=== PATIENT | male | born 1960 | race Caucasian/White ===

== ENCOUNTER 2022-07-13 23:35 | Emergency (ER) | payer OTHER, SELFPAY ==
--- NOTE | 2022-07-13 23:42 | CRLHL7_ITS ---
For Patients: As a result of the Cures Act, medical imaging exams and procedure reports are released immediately into your electronic medical record. You may view this report before your referring provider. If you have questions, please contact your health care provider. INDICATION: Palpitations. TECHNIQUE: Chest 1 view(s) COMPARISON: Chest radiographs dated 09/21/2019. FINDINGS: Cardiomediastinal silhouette and pulmonary vasculature are normal. No focal consolidation. No significant pleural effusion, no definite pneumothorax. No acute chest wall abnormality. ACDF hardware is noted. IMPRESSION: No acute cardiopulmonary process. Dictated by Nj Cheng MD @ 07/14/2022 12:44:41 AM (Electronically Signed)
[2022-07-13 23:53] VITALS: BP 108/85; PULSE 130; TEMP 36.4; O2SAT 96; BMI 39.1
[2022-07-13 23:56] LABS: Basophils Absolute Auto 0.02 K/uL (0.00-0.30); Basophils Percent Auto 0.2 % (0.0-3.0); Eosinophils Absolute Auto 0.19 K/uL (0.00-0.50); Eosinophils Percent Auto 2.1 % (0.0-7.0); Hemoglobin* 13.5 gm/dL (13.5-17.5); Immature Granulocytes Abs Auto 0.01 K/uL (0.00-0.30); Lymphocytes Absolute Auto 3.71 K/uL (0.90-2.90); Lymphocytes Percent Auto 40.1 % (20-44); Mean Corpuscular HGB Conc 35 gm/dL (32-36); Mean Corpuscular Hemoglobin 29 pg (26-34); Mean Corpuscular Volume 82 fL (80-100); Monocytes Percent Auto 8.1 % (0.0-11.0); Neutrophils Absolute Auto 4.57 K/uL (1.7-7.0); Neutrophils Percent Auto 49.4 % (42.0-72.0); Platelet Count* 260 K/uL (140-440); RDW Coefficient of Variation % 12.4 % (11.5-15.5); Red Blood Count 4.74 m/uL (4.30-5.90); White Blood Count* 9.25 K/uL (4.50-11.00)
[2022-07-14 00:02] LABS: Slide Review Reflex No
[2022-07-14 00:11] LABS: Chloride* 101 mmol/L (96-114); Sodium* 136 mmol/L (135-149)
[2022-07-14 00:14] LABS: Carbon Dioxide* 28 mmol/L (20-32); Creatinine* 1.2 mg/dL (0.5-1.5); Est. Creatinine Clearance* 66.24; Estimated Glomerular Filt Rate 68 ml/min
[2022-07-14 00:15] LABS: Blood Urea Nitrogen* 20 mg/dL (7-30); Calcium* 9.1 mg/dL (8.4-10.6); Glucose* 229 mg/dL (60-115); Magnesium* 1.9 mg/dL (1.5-2.6)
[2022-07-14 00:16] LABS: Potassium* 2.9 mmol/L (3.6-5.1)
[2022-07-14 00:24] LABS: NT Pro B Type NatriureticPept* 184 PG/mL (0-125)
--- NOTE | 2022-07-14 00:28 | ED_ITS ---
HPI - General Adult General Date Seen: 07/14/22 Chief complaint: Chest Pain Stated complaint: heart arythmia Time Seen by Provider: 07/14/22 00:17 Source: patient Mode of arrival: ambulatory Limitations: no limitations History of Present Illness HPI narrative: Patient is a 62-year-old male with a history of paroxysmal atrial fibrillation who began feeling palpitations and tachycardia around 10:00 p.m.. He felt well throughout the day today. His last episode of atrial fibrillation was about one year ago and did require cardioversion for the 1st time. He is not on anything for rate control and he is not anticoagulated beyond a baby aspirin daily. Believes that he had an echo but it has been quite sometime ago. He denies any chest pains or shortness of breath. He has history of hypokalemia but is not currently on a potassium supplement. PCP is Dr. Herron. Related Data Home Medications Medication Instructions Recorded Confirmed aspirin 81 mg capsule 81 mg PO DAILY 07/13/22 07/13/22 Previous Rx's Medication Instructions Recorded hydrochlorothiazide 25 mg tablet 25 mg PO QDAY #30 tabs 07/07/22 losartan 100 mg tablet 100 mg PO QDAY #30 tabs 07/07/22 potassium chloride 20 mEq 20 meq PO DAILY #20 tabs 07/14/22 tablet,extended release Allergies Allergy/AdvReac Type Severity Reaction Status Date / Time No Known Drug Allergies Allergy Verified 07/13/22 23:55 [facility] Medical History (Updated 07/14/22 @ 02:52 by Jj Quan MD) HTN (hypertension) Paroxysmal atrial fibrillation Social History (Updated 07/14/22 @ 00:32 by Jj Quan MD) Narrative: Works in [employer] for [employer], nonsmoker, PCP Gopal Smoking Status: Never smoker Do you use any of these nicotine containing products: None Second hand tobacco smoke exposure: No How often do you have a drink containing alcohol: never How often do you have six or more drinks on one occasion: Never AUDIT-C Alcohol total score: 0 Non-prescribed substance use: denies use Exam Narrative: Exam Narrative: Vitals noted. HEENT: Conjunctiva clear. Neck is supple without adenopathy, thyromegaly, carotid bruit. Lungs: Clear to auscultation in all avery. No wheezes, rales, rhonchi. Heart: Irregularly irregular and tachycardic. No murmur.. Abdomen: Obese, Soft and nontender. No guarding, rigidity, rebound. Bowel sounds are normal. No palpable masses. Extremities: No cyanosis or edema. Good distal pulses. Skin: No abnormalities noted of the exposed skin. Neurologic: Awake, alert, fully oriented. Neurologic exam is nonfocal. Const: Vital Signs, click to edit/add: Vital Signs - 24 hr 07/13/22 23:53 07/14/22 01:03 07/14/22 00:52 Temperature 97.5 F L Pulse Rate [Right Pulse Oximeter] 130 H 92 Respiratory Rate 18 18 Blood Pressure [Le ft Upper Arm] 108/85 110/70 112/80 Pulse Oximetry 96 95 Oxygen Delivery Me thod Room Air Room Air Room Air 07/14/22 00:52 07/14/22 02:49 Temperature Pulse Rate [Right Pulse Oximeter] Respiratory Rate 18 20 Blood Pressure [Le ft Upper Arm] 120/78 113/70 Pulse Oximetry 97 95 Oxygen Delivery Me thod Room Air Room Air Documenting provider has reviewed patient's vital signs: yes Course Course Hospital Course: Patient seen and examined and found to be in atrial fibrillation with a rate in the 130-140 range. Labs and chest x-ray are ordered. He is having no chest pains or shortness of breath. He believes that this started at approximately 10:00 p.m.. Reevaluation(s) Reevaluation #1: Chest x-ray is normal. Labs are all normal other than a potassium of 2.9. He is given 40 mil equivalents orally and 20 mEq IV. He is given diltiazem 10 mg IV bolus. Reevaluation #2: Heart rate is down into the 80-90 range but still in atrial fibrillation. He is asymptomatic. Second bolus of diltiazem 10 mg IV is given. Reevaluation #3: Patient continues to have some discomfort in his chest we discussed options of discharge on anticoagulation and rate control versus cardioversion. He elected for cardioversion. Informed consent is obtained. He is cardioverted with 100 joules x1 with preprocedure sedation Versed 2 mg and fentanyl 100 mcg. This was successful and his postprocedural EKG showed an sinus bradycardia with a rate of 54. No complications. Vital Signs Vital signs: Initial Vital Signs Temperature 97.5 F L 07/13/22 23:53 Temperature Source Temporal Artery Scan 07/13/22 23:53 Pulse Rate 130 H 07/13/22 23:53 Blood Pressure 108/85 07/13/22 23:53 Blood Pressure Mean 92 07/13/22 23:53 Blood Pressure Position Supine 07/13/22 23:53 Pulse Oximetry 96 07/13/22 23:53 Oxygen Delivery Method 07/13/22 23:53 Vital Signs Temperature 97.5 F L 07/13/22 23:53 Pulse Rate 130 H 07/13/22 23:53 Blood Pressure 108/85 07/13/22 23:53 Pulse Oximetry 96 07/13/22 23:53 Oxygen Delivery Method 07/13/22 23:53 Temperature 97.5 F L 07/13/22 23:53 Pulse Rate 92 07/14/22 00:52 Respiratory Rate 20 07/14/22 02:49 Blood Pressure 113/70 07/14/22 02:49 Pulse Oximetry 95 07/14/22 02:49 Oxygen Delivery Method 07/14/22 02:49 Medical Decision Making Lab Data Labs: Lab Results 07/13/22 07/13/22 07/13/22 Range/Units 23:43 23:45 23:45 WBC 9.25 (4.50-11.00) K/uL RBC 4.74 (4.30-5.90) m/uL Hgb 13.5 (13.5-17.5) gm/dL Hct 39.0 (37.0-53.0) % MCV 82 (80-100) fL MCH 29 (26-34) pg MCHC 35 (32-36) gm/dL RDW Coeff of Yaakov 12.4 (11.5-15.5) % Plt Count 260 (140-440) K/uL Neut % (Auto) 49.4 (42.0-72.0) % Lymph % (Auto) 40.1 (20-44) % Mclennan % (Auto) 8.1 (0.0-11.0) % Eos % (Auto) 2.1 (0.0-7.0) % Baso % (Auto) 0.2 (0.0-3.0) % Neut # (Auto) 4.57 (1.7-7.0) K/uL Lymph # (Auto) 3.71 H (0.90-2.90) K/uL Mclennan # (Auto) 0.70 (0.00-0.90) K/UL Eos # (Auto) 0.19 (0.00-0.50) K/uL Baso # (Auto) 0.02 (0.00-0.30) K/uL Abs Immat Gran (auto) 0.01 (0.00-0.30) K/uL Sodium 136 (135-149) mmol/L Potassium 2.9 L* (3.6-5.1) mmol/L Chloride 101 (96-114) mmol/L Carbon Dioxide 28 (20-32) mmol/L BUN 20 (7-30) mg/dL Creatinine 1.2 (0.5-1.5) mg/dL Estimated Creat Clear 66.24 Estimated GFR 68 ml/min Glucose 229 H (60-115) mg/dL Calcium 9.1 (8.4-10.6) mg/dL Magnesium 1.9 (1.5-2.6) mg/dL NT-Pro-B Natriuret Pep (0-125) PG/mL POC Troponin I 0.00 L (0.01-0.04) ng/ml 07/13/22 Range/Units 23:45 WBC (4.50-11.00) K/uL RBC (4.30-5.90) m/uL Hgb (13.5-17.5) gm/dL Hct (37.0-53.0) % MCV (80-100) fL MCH (26-34) pg MCHC (32-36) gm/dL RDW Coeff of Yaakov (11.5-15.5) % Plt Count (140-440) K/uL Neut % (Auto) (42.0-72.0) % Lymph % (Auto) (20-44) % Mclennan % (Auto) (0.0-11.0) % Eos % (Auto) (0.0-7.0) % Baso % (Auto) (0.0-3.0) % Neut # (Auto) (1.7-7.0) K/uL Lymph # (Auto) (0.90-2.90) K/uL Mclennan # (Auto) (0.00-0.90) K/UL Eos # (Auto) (0.00-0.50) K/uL Baso # (Auto) (0.00-0.30) K/uL Abs Immat Gran (auto) (0.00-0.30) K/uL Sodium (135-149) mmol/L Potassium (3.6-5.1) mmol/L Chloride (96-114) mmol/L Carbon Dioxide (20-32) mmol/L BUN (7-30) mg/dL Creatinine (0.5-1.5) mg/dL Estimated Creat Clear Estimated GFR ml/min Glucose (60-115) mg/dL Calcium (8.4-10.6) mg/dL Magnesium (1.5-2.6) mg/dL NT-Pro-B Natriuret Pep 184 H (0-125) PG/mL POC Troponin I (0.01-0.04) ng/ml Discharge Plan Discharge Clinical Impression: Paroxysmal atrial fibrillation Patient Disposition: Home, Self-Care Condition: Improved Additional Instructions: Continue current medications. Follow-up with Dr. Herron to discuss cardiology consult, echo, anticoagulation. Start taking KCl 20 mil equivalents daily. Return emergency department for recurrent atrial fibrillation. Prescriptions: New potassium chloride 20 mEq tablet extended release 20 meq PO DAILY Qty: 20 2RF No Action aspirin 81 mg capsule 81 mg PO DAILY hydrochlorothiazide 25 mg tablet 25 mg PO QDAY Qty: 30 0RF losartan 100 mg tablet 100 mg PO QDAY Qty: 30 0RF Stand Alone Forms: [employer] Info Instructions Procedures Procedural Sedation Pre procedure diagnosis: Atrial fibrillation Post procedure diagnosis: Return normal sinus rhythm Written consent by: patient Verification/time out: correct patient Name of person perfmorming the procedure: Jj Quan Sedation provider same as procedural provider: Yes ASA Class: II Time of Last PO Intake: 19:00 Preparation: bread and pastry baker applied, pulse oximeter, supplemental O2 applied, suction/airway equipment at bedside and IV secured Fentanyl: IV Fentanyl dose (mcg): 99 Midazolam: IV Midazolam dose (mg): 2 Patient Tolerated Procedure: well Complications: none Additional Procedures Procedure name: Cardioversion Pre procedure diagnosis: Atrial fibrillation Post procedure diagnosis: Return to sinus rhythm Written consent by: patient Verification/time out: correct patient Estimated blood loss (if any): none
[2022-07-14 00:52] VITALS: BP 112/80; BP 120/78; PULSE 92; RESP 18; O2SAT 97
--- NOTE | 2022-07-14 00:59 | PC.NURSE ---
all cares explained to pt including potassium levels and cardiac meds we are giving. Pt pleasant and cooperative.
[2022-07-14 01:03] VITALS: BP 110/70; RESP 18; O2SAT 95
[2022-07-14] MEDS: dilTIAZem 5 MG/ML inj 10 MG IVP ×2 (01:48→02:00)
[2022-07-14] MEDS: POTASSIUM CHLORIDE 10 MEQ/100 ML PIGGYBACK 100 MEQ IVPB (01:57)
[2022-07-14] MEDS: POTASSIUM CHLORIDE 10 MEQ CAPSULE ER 40 MEQ PO (02:00)
--- NOTE | 2022-07-14 02:44 | ED.NURSE ---
pt consented, moved to room 8 with airway cart at BS. versed 2mg and fentanyl 100mcg IV given. Post EKG SB and MD aware.
[2022-07-14 02:49] VITALS: BP 113/70; RESP 20; O2SAT 95
[2022-07-14] MEDS: MIDAZOLAM HCL 1 MG/ML inj 2 MG IVP (02:53)
[2022-07-14] MEDS: fentaNYL 100 MCG/2 ML inj 50 MCG IVP (02:53)
--- NOTE | 2022-07-14 03:11 | ED.NURSE ---
written and verbal D/C per MD and RN. IV D/C intact. All stickers removed. Family member here to drive pt home. Pt able to ambulate out with stable gait.
== END 2022-07-14 04:32 | disposition home or self-care (01) ==
PROVIDERS: Family Medicine; Emergency Provider Family Medicine
DX: I48.0 Paroxysmal atrial fibrillation (principal)
CPT/HCPCS: 36415; 71045; 80048; 83735; 83880; 84484; 85025; 92960; 93005; 96361; 96374; 96375; 96376; 99284; A9270; J2250; J3010; J3480

== ENCOUNTER 2022-10-25 21:25 | Emergency (ER) | payer OTHER, SELFPAY ==
[2022-10-25] VITALS (21 sets, daily range): BP systolic 108–165; BP diastolic 64–102; PULSE 51–116; RESP 12–19; TEMP 36.7; O2SAT 96–99
--- NOTE | 2022-10-25 21:28 | ED.GENADULT ---
HPI - General Adult General Time Seen by Provider: 21:28 Date Seen: 10/25/22 Chief complaint: Arrhythmia/Palpitations Stated complaint: Afib Time Seen by Provider: 10/25/22 21:27 Source: patient Mode of arrival: ambulatory Limitations: no limitations History of Present Illness HPI narrative: 62-year-old male who comes in today with irregular heart rate. Review of chart shows patient has a history of atrial fibrillation, was seen in June and had electrical cardioversion at that time. He reports that he started having palpitations with little bit of chest tightness about 2 hours prior to coming emergency department. He denies shortness of breath. Has not taken any medication for this. He takes losartan and amlodipine regularly for blood pressure, not currently anticoagulated. He does not feel that he has been in atrial fibrillation since the last time he was cardioverted. Related Data Home Medications Medication Instructions Recorded Confirmed aspirin 81 mg capsule 81 mg PO DAILY 07/13/22 10/25/22 amlodipine 5 mg tablet mg 10/25/22 metformin 500 mg tablet mg 10/25/22 Previous Rx's Medication Instructions Recorded hydrochlorothiazide 25 mg tablet 25 mg PO QDAY #30 tabs 07/07/22 losartan 100 mg tablet 100 mg PO QDAY #30 tabs 07/07/22 potassium chloride 20 mEq 20 meq PO DAILY #20 tabs 07/14/22 tablet,extended release potassium chloride 20 mEq 20 meq PO BID #60 tabs 10/25/22 tablet,extended release Allergies Allergy/AdvReac Type Severity Reaction Status Date / Time No Known Drug Allergies Allergy Verified 07/13/22 23:55 [facility] Medical History (Updated 10/25/22 @ 22:43 by Venu Rashid MD) HTN (hypertension) Paroxysmal atrial fibrillation Social History (Updated 07/14/22 @ 00:32 by Jj Quan MD) 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[employer], 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, 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 Smoking Status: Never smoker Do you use any of these nicotine containing products: None Second hand tobacco smoke exposure: No How often do you have a drink containing alcohol: never How often do you have six or more drinks on one occasion: Never AUDIT-C Alcohol total score: 0 Non-prescribed substance use: denies use service: No Exam Narrative: Exam Narrative: General: Well-developed and well-nourished, no acute distress Head: Atraumatic and normocephalic Eyes: Pupils are equal reactive, extraocular motions intact, conjunctiva clear ENT: External nose and ears are normal, posterior pharynx without erythema or exudate Neck: No midline cervical tenderness, full spontaneous range of motion the neck, trachea midline, no adenopathy Heart: Tachycardic and regular, no murmur thrill Lungs: Clear to auscultation bilaterally without wheezes or crackles Abdomen: Soft, nontender, nondistended with active bowel sounds Musculoskeletal: No tenderness, deformity, or edema Neurologic: Awake, alert, and oriented x3, no gross focal neurologic deficits, cranial nerves intact as tested Psych: Mood and affect are appropriate Skin: No rashes Const: Vital Signs, click to edit/add: Vital Signs - 24 hr 10/25/22 21:33 10/25/22 21:43 10/25/22 21:45 Temperature 98.1 F Pulse Rate 81 104 H Pulse Rate [Left P ulse Oximeter] 101 H Respiratory Rate 16 Blood Pressure Blood Pressure [Ri ght Upper Arm] 165/102 H Pulse Oximetry 98 97 96 Oxygen Delivery Me thod Room Air Oxygen Flow Rate 10/25/22 21:46 10/25/22 22:14 10/25/22 21:47 Temperature Pulse Rate 91 116 H Pulse Rate [Left P ulse Oximeter] Respiratory Rate Blood Pressure 117/77 Blood Pressure [Ri ght Upper Arm] Pulse Oximetry 96 98 97 Oxygen Delivery Me thod Nasal Cannula Oxygen Flow Rate 2 10/25/22 22:00 10/25/22 22:02 10/25/22 22:15 Temperature Pulse Rate 103 H 100 78 Pulse Rate [Left P ulse Oximeter] Respiratory Rate 17 Blood Pressure 136/83 Blood Pressure [Ri t Upper Arm] Pulse Oximetry 97 96 98 Oxygen Delivery Me thod Oxygen Flow Rate 10/25/22 22:16 10/25/22 22:30 10/25/22 22:31 Temperature Pulse Rate 80 88 71 Pulse Rate [Left P ulse Oximeter] Respiratory Rate 19 19 19 Blood Pressure 108/72 111/67 Blood Pressure [Ri ght Upper Arm] Pulse Oximetry 98 98 98 Oxygen Delivery Me thod Oxygen Flow Rate 10/25/22 22:35 Temperature Pulse Rate 80 Pulse Rate [Left P ulse Oximeter] Respiratory Rate 16 Blood Pressure 108/73 Blood Pressure [Ri ght Upper Arm] Pulse Oximetry 98 Oxygen Delivery Me thod Oxygen Flow Rate Course Course Hospital Course: Patient seen examined, prior records reviewed. Patient with history of atrial fibrillation, feels like he is in atrial fibrillation again. We discussed treatment for this including medications and cardioversion. With his bifascicular block, he may not be a candidate for rate control medications, will discuss with Cardiology. He would like to proceed with cardioversion. I am little apprehensive about this given history of paroxysmal atrial fibrillation at risk for embolic event or stroke with cardioversion in patient who is not anticoagulated. We discussed this risk and patient would like to proceed with cardioversion. Will discuss ongoing rate control patient. Cardizem IV is ordered. Reevaluation(s) Reevaluation #1: Labs interpreted by me demonstrate mild hyperkalemia, this will be replaced orally after patient's cardioverted. Otherwise reassuring and no evidence for heart failure. Diltiazem 10 mg IV was given with improvement of heart rate to the 70s and 80s. Discussed discharge with rate control the patient but he still would like cardioversion. Time: 22:26 Reevaluation #2: Electrical cardioversion for atrial fibrillation. Risks benefits discussed with patient, verbal consent was obtained. Anesthesia at bedside, advanced airway supplies immediately available. Patient on shelter monitor, pulse oximetry, and end-tidal CO2 monitoring. Pads were placed anterior posterior. Synchronized shock of 100 joules delivered with successful conversion to sinus rate 58-60. Patient recovered. No airway intervention is needed. See anesthesia note for complete sedation details. Time: 22:39 Vital Signs Vital signs: Initial Vital Signs Temperature 98.1 F 10/25/22 21:33 Temperature Source Temporal Artery Scan 10/25/22 21:33 Pulse Rate 101 H 10/25/22 21:33 Respiratory Rate 16 10/25/22 21:33 Blood Pressure 165/102 H 10/25/22 21:33 Blood Pressure Mean 123 10/25/22 21:33 Blood Pressure Position Sitting 10/25/22 21:33 Pulse Oximetry 98 10/25/22 21:33 Oxygen Delivery Method 10/25/22 21:33 Vital Signs Temperature 98.1 F 10/25/22 21:33 Pulse Rate 101 H 10/25/22 21:33 Respiratory Rate 16 10/25/22 21:33 Blood Pressure 165/102 H 10/25/22 21:33 Pulse Oximetry 98 10/25/22 21:33 Oxygen Delivery Method 10/25/22 21:33 Temperature 98.1 F 10/25/22 21:33 Pulse Rate 80 10/25/22 22:35 Respiratory Rate 16 10/25/22 22:35 Blood Pressure 108/73 10/25/22 22:35 Pulse Oximetry 98 10/25/22 22:35 Oxygen Delivery Method 10/25/22 22:14 Oxygen Flow Rate 2 10/25/22 22:14 Medical Decision Making Lab Data Labs: Lab Results 10/25/22 10/25/22 Range/Units 21:35 21:35 Sodium 140 (135-149) mmol/L Potassium 3.1 L (3.6-5.1) mmol/L Chloride 109 (96-114) mmol/L Carbon Dioxide 26 (20-32) mmol/L BUN 16 (7-30) mg/dL Creatinine 0.9 (0.5-1.5) mg/dL Estimated GFR 95 ml/min Glucose 226 H (60-115) mg/dL Calcium 8.7 (8.4-10.6) mg/dL Magnesium 1.7 (1.5-2.6) mg/dL NT-Pro-B Natriuret Pep 250 pg/mL POC Troponin I 0.01 (0.01-0.04) ng/ml Imaging Data Chest x-ray: Attestation: I have reviewed the pertinent imaging results. My impression: Cardiomegaly, otherwise negative Radiologist's impression: IMPRESSION: 1. [id number] cardiomegaly is noted without interval change. ECG Data Attestation: I personally reviewed and interpreted this ECG as follows: Prior ECG tracings: available for review Interpretation: Independent interpretation by me demonstrates atrial fibrillation with RVR rate 117, bifascicular block, no acute ST elevations or depressions, normal axis, QTC 460. Compared to prior of June 2022, no acute changes are seen. Repeat EKG after cardiversion demonstrates sinus rhythm rate 56, bifascicular block, no acute ST elevations or depressions, normal axis, MD 160. Compared to prior of earlier today, sinus rhythm has replaced atrial fibrillation Discharge Plan Discharge Clinical Impression: Paroxysmal atrial fibrillation, Acute hypokalemia Patient Disposition: Home, Self-Care Condition: Improved Instructions: A-fib (Atrial Fibrillation) (ED), Hypokalemia (ED), Cardioversion (DC) Additional Instructions: Take potassium as instructed. Do not drive for 12 hours after procedure. Follow-up with your doctor for further evaluation treatment. Activity Level: No Restrictions Discharge Diet: Heart Healthy (2 gm sodium, low fat) Prescriptions: New potassium chloride 20 mEq tablet extended release 20 meq PO BID Qty: 60 2RF No Action aspirin 81 mg capsule 81 mg PO DAILY potassium chloride 20 mEq tablet extended release 20 meq PO DAILY Qty: 20 2RF metformin 500 mg tablet Label Comments: Take 1 tablet (500 mg) by mouth 2 times daily (with meals) amlodipine 5 mg tablet Label Comments: TAKE ONE TABLET BY MOUTH ONE TIME DAILY hydrochlorothiazide 25 mg tablet 25 mg PO QDAY Qty: 30 0RF losartan 100 mg tablet 100 mg PO QDAY Qty: 30 0RF Follow Up/Referrals: Provider,Not a Local [Primary Care Provider] - Stand Alone Forms: [employer] Info Instructions
--- NOTE | 2022-10-25 21:29 | CRLHL7_ITS ---
For Patients: As a result of the Cures Act, medical imaging exams and procedure reports are released immediately into your electronic medical record. You may view this report before your referring provider. If you have questions, please contact your health care provider. INDICATION: Atrial fibrillation TECHNIQUE: Chest radiograph 1 view COMPARISON: 07/14/2022 FINDINGS: The sensitivity and specificity of the exam are moderately limited by the patient`s body habitus. Mediastinum: The mediastinum is normal in appearance. [id number] cardiomegaly is noted without interval change. Mild stable elevation of the right hemidiaphragm is noted. Lung: Both lungs are unremarkable in appearance. No sign of pleural effusion seen. No pneumothorax is identified. Bone and Soft tissue: Unremarkable for age. IMPRESSION: 1. Irhr-xb-[id number] cardiomegaly is noted without interval change. Dictated by Landry Agudelo MD @ 10/25/2022 10:08:14 PM Dictated by: Landry Agudelo MD @ 10/25/2022 22:08:18 (Electronically Signed)
[2022-10-25] MEDS: 0.9 % SODIUM CHLORIDE 1000 ml 1,000 ML IV (21:50)
[2022-10-25 21:55] LABS: Troponin, Point-of-Care* 0.01 ng/ml (0.01-0.04)
[2022-10-25] MEDS: dilTIAZem 5 MG/ML inj 10 MG IVP (22:02)
[2022-10-25 22:04] LABS: Chloride* 109 mmol/L (96-114)
[2022-10-25 22:05] LABS: Potassium* 3.1 mmol/L (3.6-5.1); Sodium* 140 mmol/L (135-149)
[2022-10-25 22:07] LABS: Creatinine* 0.9 mg/dL (0.5-1.5); Estimated Glomerular Filt Rate 95 ml/min
[2022-10-25 22:08] LABS: Blood Urea Nitrogen* 16 mg/dL (7-30); Calcium* 8.7 mg/dL (8.4-10.6); Carbon Dioxide* 26 mmol/L (20-32); Glucose* 226 mg/dL (60-115); Magnesium* 1.7 mg/dL (1.5-2.6)
[2022-10-25 22:21] LABS: NT Pro B Type NatriureticPept* 250 pg/mL
--- NOTE | 2022-10-25 22:55 | W.ANESCHARGE ---
Anesthesia Charges Start Date/Time Anesthesia Start Date: 10/25/22 Anesthesia Start Time: 22:30 Stop Date/Time Anesthesia Stop Date: 10/25/22 Anesthesia Stop Time: 22:45 Summary Emergency: Yes
[2022-10-25] MEDS: POTASSIUM CHLORIDE 10 MEQ CAPSULE ER 20 MEQ PO (23:04)
== END 2022-10-25 23:42 | disposition home or self-care (01) ==
PROVIDERS: Emergency Provider Family Medicine
DX: I48.0 Paroxysmal atrial fibrillation (principal); E87.6 Hypokalemia
CPT/HCPCS: 00410; 36415; 71045; 80048; 83735; 83880; 84484; 92960; 93005; 96361; 96374; 99140; 99284; 99291; A9270; J2250; J2704; J3010; J3490; J7030

== ENCOUNTER 2023-07-22 12:36 | Emergency (ER) | payer OTHER, SELFPAY ==
[2023-07-22 12:42] VITALS: BP 188/87; PULSE 60; RESP 16; O2SAT 98; BMI 38.7
--- NOTE | 2023-07-22 13:00 | ED_ITS ---
HPI - Wound/Laceration General Chief Complaint: Laceration/Wound Stated Complaint: Head Lac Time Seen by Provider: 07/22/23 12:37 History of Present Illness HPI narrative: This 63-year-old male comes in with a laceration to his scalp that occurred just prior to arrival. He states that he bumped into a tent and injured the top portion of his head. He states that he is unsure of his tetanus status. He did not have loss of consciousness. There was bleeding at the time but currently no active bleeding. Related Data Home Medications Medication Instructions Recorded Confirmed aspirin 81 mg capsule 81 mg PO DAILY 07/13/22 02/05/23 amlodipine 5 mg tablet mg 10/25/22 02/05/23 metformin 500 mg tablet mg 10/25/22 02/05/23 Previous Rx's Medication Instructions Recorded losartan 100 mg tablet 100 mg PO QDAY #30 tabs 07/07/22 Allergies Allergy/AdvReac Type Severity Reaction Status Date / Time No Known Drug Allergies Allergy Verified 07/13/22 23:55 Review of Systems Status of ROS: Reports: 10 or more systems reviewed and unremarkable except as noted in History and below Narrative: Constitutional: No fevers, no weight gain or loss. Eyes: No discharge. No vision changes. HENT: No congestion, no sore throat, no ear pain. Cardiovascular: No chest pain, no palpitations. Respiratory: No shortness of breath, no wheezes, no cough. Gastrointestinal: No abdominal pain, no vomiting, no diarrhea. Genitourinary: No dysuria, no hematuria. Musculoskeletal: Normal range of motion. Skin: No rashes, no pruritis. Neurological: No dizziness, weakness, sensory change, speech change. Endo/Heme/Allergies: No bruising or bleeding. No polydipsia. Pysch: no suicidality, no anxiety, no insomnia. All other systems reviewed and are negative. 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 HEENT: 1.5 cm irregular laceration on the top portion of his head. No underlying hematoma. Neck: Normal range of motion. Nontender. Supple. Heart: Intact distal pulses. Lungs: No chest discomfort. No wheezes, rhonchi, or rales. Abdomen: Nontender. Back: Normal range of motion. Extremities: Normal range of motion. No injury. Skin: Intact. No rash. Warm. No erythema or pallor. Neurologic: No altered sensation. No weakness. Alert and oriented. Psychiatric: No suicidality. No anxiety or depression. No insomnia. Nursing notes and vitals signs are reviewed. Const: Vital Signs, click to edit/add: Vital Signs - 24 hr 07/22/23 12:42 Pulse Rate [Pulse Oximeter] 60 Respiratory Rate 16 Blood Pressure [Ri ght Upper Arm] 188/87 H Pulse Oximetry 98 Oxygen Delivery Me thod Room Air Course Vital Signs Vital signs: Initial Vital Signs Pulse Rate 60 07/22/23 12:42 Pulse Rhythm Regular 07/22/23 12:42 Respiratory Rate 16 07/22/23 12:42 Blood Pressure 188/87 H 07/22/23 12:42 Blood Pressure Mean 120 H 07/22/23 12:42 Blood Pressure Position Sitting 07/22/23 12:42 Pulse Oximetry 98 07/22/23 12:42 Oxygen Delivery Method Room Air 07/22/23 12:42 Vital Signs Pulse Rate 60 07/22/23 12:42 Respiratory Rate 16 07/22/23 12:42 Blood Pressure 188/87 H 07/22/23 12:42 Pulse Oximetry 98 07/22/23 12:42 Oxygen Delivery Method Room Air 07/22/23 12:42 Pulse Rate 60 07/22/23 12:42 Respiratory Rate 16 07/22/23 12:42 Blood Pressure 188/87 H 07/22/23 12:42 Pulse Oximetry 98 07/22/23 12:42 Oxygen Delivery Method Room Air 07/22/23 12:42 MDM - Wound/Laceration MDM Narrative Medical decision making narrative: This patient comes in for evaluation and treatment of a laceration on his scalp as described above. The wound was cleansed and would benefit from Dermabond repair. Skin edges are already approximated nicely. Dermabond was applied with excellent results. Instructions were given regarding wound care. The patient did receive a tetanus vaccination. Discharge Plan Discharge Clinical Impression: Laceration Patient Disposition: Home, Self-Care Condition: Improved Additional Instructions: Keep wound clean and dry. Activity as tolerated. Use [id number] medicines as needed and directed. Follow up with MD or return if worsening. Prescriptions: No Action aspirin 81 mg capsule 81 mg PO DAILY metformin 500 mg tablet Patient Comments: Take 1 tablet (500 mg) by mouth 2 times daily (with meals) amlodipine 5 mg tablet Patient Comments: TAKE ONE TABLET BY MOUTH ONE TIME DAILY losartan 100 mg tablet 100 mg PO QDAY Qty: 30 0RF Follow Up/Referrals: Provider,Not a Local [Primary Care Provider] - Stand Alone Forms: [facility] Info Instructions
[2023-07-22] MEDS: TETANUS/DIPHTH/PERTUSSIS 0.5 ML SYRINGE IM (13:04)
== END 2023-07-22 13:10 | disposition home or self-care (01) ==
LOC: ED 13:09
PROVIDERS: Emergency Provider Emergency Medicine Emergency Medical Services
DX: S01.01XA Laceration without foreign body of scalp, initial encounter (principal); W26.9XXA Contact with unspecified sharp object(s), initial encounter
CPT/HCPCS: 12001; 90471; 90715; 99283; 99284

== ENCOUNTER 2024-12-12 07:38 | Emergency (ER) | payer MEDICARE, SELFPAY ==
[2024-12-12] VITALS (31 sets, daily range): BP systolic 68–156; BP diastolic 51–95; PULSE 50–128; RESP 6–26; TEMP 36.3; O2SAT 95–100; BMI 36.6
--- OUTSIDE RECORDS SUMMARY | 2024-12-12 07:40 | XMS_ITS | Encounter Summary ---
Author Organization [facility] Address [address] [place] [address] Care Team Providers Care Watchmaking Teacher Name Role Phone Hebert Herron MD Primary Care Provider + Hebert Herron MD Unavailable [phone] Anny Pratt [facility] Unavailable [phone] Encounter Details Date Type Department Care Team (Late st Contact Info) Description 12/20/2023 MyC Medical Advice [facility] Mental Health & Addiction [facility] [address] [place] [phone] Anny Pratt LP[facility] [address] [place] [address] Social History Tobacco Use Types Packs/Day Years Used Date Smoking Tobacco: Never Smokeless Tobacco: Never Alcohol Use Standard Drinks/Week Comments No 0 (1 standard drink = 0.6 oz pur e alcohol) PHQ-2 Answer Date Recorded PHQ-2 Score 2 12/21/2023 Adolescent Education Answer Date Record ed Getting School Help Needed Not on file 07/31 Sex and Gender Information Value Date Recorded Sex Assigned at Not on file Legal Sex Male 4:18 AM ARBORIST CLIMBER Gender Identity Not on file Sexual Orientation Not on file documented as of this encounter Plan of Treatment Not on file documented as of this encounter Visit Diagnoses Not on filedocumented in this encounter Additional Health Concerns Assessment Noted Time PHQ-9 Depression Total Score: 8 12/14/19 24 11:46 AM ARBORIST CLIMBER documented as of this encounter Care Teams Watchmaking Teacher Relationship Specialty Start Date End Date Hebert Herron MD PCP - General 12/27/17 Hebert Herron MD [address] [place], [place] [id number] Assigned PCP 09/04/22 Anny Pratt LP[facility] [address] [address] Assigned Behavioral Health Provider 02/14/24 documented as of this encounter
--- OUTSIDE RECORDS SUMMARY | 2024-12-12 07:40 | XMS_ITS | Encounter Summary ---
Author Organization [facility] Address [address] [place] [address] Care Team Providers Care Hair Worker Name Role Phone Hebert Herron MD Primary Care Provider + Hebert Herron MD Unavailable [phone] Anny Pratt [facility] Unavailable [phone] Encounter Details Date Type Department Care Team (Late st Contact Info) Description 12/14/2023 MyC Medical Advice [facility] Mental Health & Addiction [facility] [address] [place] [phone] Anny Pratt LP[facility] [address] [place] [address] Social History Tobacco Use Types Packs/Day Years Used Date Smoking Tobacco: Never Smokeless Tobacco: Never Alcohol Use Standard Drinks/Week Comments No 0 (1 standard drink = 0.6 oz pur e alcohol) PHQ-2 Answer Date Recorded PHQ-2 Score 3 12/14/2023 Adolescent Education Answer Date Record ed Getting School Help Needed Not on file 07/31 Sex and Gender Information Value Date Recorded Sex Assigned at Not on file Legal Sex Male 4:18 AM BANQUET HOUSEPERSON Gender Identity Not on file Sexual Orientation Not on file documented as of this encounter Plan of Treatment Not on file documented as of this encounter Visit Diagnoses Not on filedocumented in this encounter Additional Health Concerns Assessment Noted Time PHQ-9 Depression Total Score: 8 12/14/19 24 11:46 AM BANQUET HOUSEPERSON documented as of this encounter Care Teams Hair Worker Relationship Specialty Start Date End Date Hebert Herron MD PCP - General 12/27/17 Hebert Herron MD [address] [place], [place] [id number] Assigned PCP 09/04/22 Anny Pratt LP[facility] [address] [id number] Assigned Behavioral Health Provider 02/14/24 documented as of this encounter
--- OUTSIDE RECORDS SUMMARY | 2024-12-12 07:40 | XMS_ITS | Encounter Summary ---
Author Organization [facility] Address [address] [place] [address] Care Team Providers Care Youth Accommodation Support Worker Name Role Phone Hebert Herron MD Primary Care Provider + Hebert Herron MD Unavailable [phone] Anny Pratt [facility] Unavailable [phone] Reason for Visit * Reason Onset Date Comments Refill Request 08/30/2022 Encounter Details Date Type Department Care Team (Late st Contact Info) Description 08/30/[address] [place] [address] Hebert Herron MD [address] [place] [address] Refill Request Social History Tobacco Use Types Packs/Day Years Used Date Smoking Tobacco: Never Smokeless Tobacco: Never Alcohol Use Standard Drinks/Week Comments No 0 (1 standard drink = 0.6 oz pur e alcohol) PHQ-2 Answer Date Recorded PHQ-2 Score 0 08/26/2022 Sex and Gender Information Value Date Recorded Sex Assigned at Not on file Legal Sex Male 4:18 AM ASSOCIATE ACCOUNT MANAGER Gender Identity Not on file Sexual Orientation Not on file COVID-19 Exposure Response Date Recorded In the last 10 days, have yo u been in contact with someone who was confirmed or suspected to have Coronavirus/COVID-19? No / Unsure 09/02/2022 2:32 PM ASSOCIATE ACCOUNT MANAGER documented as of this encounter Plan of Treatment Not on file documented as of this encounter Visit Diagnoses Not on filedocumented in this encounter Care Teams Youth Accommodation Support Worker Relationship Specialty Start Date End Date Hebert Herron MD PCP - General 12/27/17 Hebert Herron MD [address] [place] [address] Assigned PCP 09/04/22 Anny Pratt LP[facility] [address] [address] Assigned Behavioral Health Provider 02/14/24 documented as of this encounter
--- OUTSIDE RECORDS SUMMARY | 2024-12-12 07:40 | XMS_ITS | Encounter Summary ---
Author Organization [facility] Address [address] [place] [address] Care Team Providers Care Supervisor Mold Cleaning And Storage Name Role Phone Hebert Herron MD Primary Care Provider + Hebert Herron MD Unavailable [phone] Anny Pratt [facility] Unavailable [phone] Reason for Visit * Reason Onset Date Comments MyChart Communication 11/28/2023 Encounter Details Date Type Department Care Team (Late st Contact Info) Description 11/28/2023 MyC Medical Advice [address] [place] [address] Hebert Herron MD [address] [place] [address] MyChart Communication Social History Tobacco Use Types Packs/Day Years Used Date Smoking Tobacco: Never Smokeless Tobacco: Never Alcohol Use Standard Drinks/Week Comments No 0 (1 standard drink = 0.6 oz pur e alcohol) PHQ-2 Answer Date Recorded PHQ-2 Score 0 02/03/2023 Adolescent Education Answer Date Record ed Getting School Help Needed Not on file 07/31 Sex and Gender Information Value Date Recorded Sex Assigned at Not on file Legal Sex Male 4:18 AM SUPERVISOR TRANSFERRING AND BOXING Gender Identity Not on file Sexual Orientation Not on file documented as of this encounter Miscellaneous Notes * Telephone Encounter - Lisha Jacques CMA - 11/28/2023 2:21 PM SUPERVISOR TRANSFERRING AND BOXING Responded to patient. Lisha Jacques MA RVISOR TRANSFERRING AND BOXING documented in this encounter Plan of Treatment Not on file documented as of this encounter Visit Diagnoses Not on filedocumented in this encounter Care Teams Supervisor Mold Cleaning And Storage Relationship Specialty Start Date End Date Hebert Herron MD PCP - General 12/27/17 Hebert Herron MD [address] [place] [address] Assigned PCP 09/04/22 Anny Pratt LP[facility] [address] [address] Assigned Behavioral Health Provider 02/14/24 documented as of this encounter
--- OUTSIDE RECORDS SUMMARY | 2024-12-12 07:40 | XMS_ITS | Encounter Summary ---
Author Organization [facility] Address [address] [place] [address] Care Team Providers Care Electric Distribution Engineer Name Role Phone Hebert Herron MD Primary Care Provider + Hebert Herron MD Unavailable [phone] Anny Pratt [facility] Unavailable Encounter Details Date Type Department Care Team (Late st Contact Info) Description 11/28/[address] [place] [address] Hebert Herron MD [address] [place] [address] Social History Tobacco Use Types Packs/Day Years [...] on file Legal Sex Male 4:18 AM STEEL WELDER Gender Identity Not on file Sexual Orientation Not on file documented as of this encounter Plan of Treatment Not on file documented as of this encounter Visit Diagnoses Not on filedocumented in this encounter Care Teams Electric Distribution Engineer Relationship Specialty Start Date End Date Hebert Herron MD PCP - General 12/27/17 Hebert Herron MD [address] [place] [address] Assigned PCP 09/04/22 Anny Pratt LP[facility] [address] [id number] Assigned Behavioral Health Provider 02/14/24 documented as of this encounter"
--- OUTSIDE RECORDS SUMMARY | 2024-12-12 07:40 | XMS_ITS | Encounter Summary ---
Author Organization [facility] Address [address] [place] [address] Care Team Providers Care Bagging Machine Operator Name Role Phone Hebert Herron MD Primary Care Provider + Hebert Herron MD Unavailable [phone] Anny Pratt [facility] Unavailable [phone] Encounter Details Date Type Department Care Team (Late st Contact Info) Description 11/29/2023 MyC Medical Advice [facility] [address] [facility] [address] [place] [address] Hebert Herron MD [address] [place] [address] Social History Tobacco Use Types [...] on file Legal Sex Male 4:18 AM MOMD TEACHER Gender Identity Not on file Sexual Orientation Not on file documented as of this encounter Plan of Treatment Not on file documented as of this encounter Visit Diagnoses Not on filedocumented in this encounter Care Teams Bagging Machine Operator Relationship Specialty Start Date End Date Hebert Herron MD PCP - General 12/27/17 Hebert Herron MD [address] [place] [address] Assigned PCP 09/04/22 Anny Pratt LP[facility] [address] [id number] Assigned Behavioral Health Provider 02/14/24 documented as of this encounter
--- OUTSIDE RECORDS SUMMARY | 2024-12-12 07:40 | XMS_ITS | Clinical Summary ---
Author Organization [facility] Address [address] [place] [address] Care Team Providers Care Loading Manager Name Role Phone Pcp, No Primary Care Provider Unavailabl e Allergies Active Allergy Reactions Criticality Noted Date Comments Chlorthalidone Hypokalemia 06/14/2014 Lisinopril Cough 06/14/2014 Medications (u) BP MED 50 MG ? 0 03/31/2000 Active losartan (COZAAR) 25 mg tabletIndication s:Hypertension Take 1 tablet by mouth once daily. 30 tablet 11 06/19/2014 Active potassium chloride (KLOR-CON-10, KTAB, KLOTRIX) 10 mEq Controlled-Relea se tabletIndication s:Hypertension Take 1 tablet by mouth once daily with a meal. 90 tablet 3 06/19/2014 Active aspirin enteric coated (ECOTRIN) 325 mg tabletIndication s:Hypertension Take 1 tablet by mouth once daily with a meal. 90 tablet 3 07/15/2014 Active Active Problems Problem Noted Date Diagnosed Date Routine adult health maintenance 08/07/2014 Overview (08/07/2014): Colonoscopy 07/2014 normal repeat in 10 years Hypertension 06/15/2014 A-fib 06/14/2014 Family History Medical History Relation Name Comments Genetic Other nil Relation Name Status Comments Other Social History Tobacco Use Types Packs/Day Years Used Date Smoking Tobacco: Never Tobacco Cessation:Counseling Given: Yes Alcohol Use Standard Drinks/Week Comments No 0 (1 standard drink = 0.6 oz pur e alcohol) Sex and Gender Information Value Date Recorded Sex Assigned at Not on file Legal Sex Male 6:31 AM ORAL AND MAXILLOFACIAL SURGERY RESIDENT Gender Identity Not on file Sexual Orientation Not on file Obstetrics History Last Filed Vital Signs Vital Sign Reading Time Taken Comments Blood Pressure 146/84 08/07/2014 9:24 AM CDT Pulse 51 08/07/2014 9:24 AM CDT Temperature 36.8 C (98.3 F) 07/17/2014 8:47 AM CDT Respiratory Rate 18 12/07/1999 12:0 0 AM ORAL AND MAXILLOFACIAL SURGERY RESIDENT Oxygen Saturation 96% 08/07/2014 9:24 AM CDT Inhaled Oxygen Concentration - - Weight 135.1 kg (297 lb 12.8 oz) 07/17/2014 8:47 AM CDT Height 184.2 cm (6' 0.5) 07/17/2014 8:47 AM CDT Body Mass Index 39.83 07/17/2014 8:47 AM CDT Plan of Treatment Health Maintenance Due Date Last Done Comments Tdap 1969 Depression screening for age 12+ 1970 BMI (ht and wt on same day) for age 18+ 1976 Hepatitis C screening for age 18-79 1976 Tetanus booster 1978 Lipids for age 45-75 2003 Pneumococcal series for age 50+ (1 of 1 - PCV) 2008 Zoster (shingles) series for age 50+ (1 of 2) 2008 COVID-19 vaccine series (2023- season) 2024 02/17/2021, 01/17/2021 Influenza for age 65+ 06/24/2024 Colonoscopy through age 75 08/07/2024 08/07/2014, RSV vaccine for adults or pr egnancy (1 - 1-dose 75+ series) 2033 Goals Goal Patient Goal Type Associated Problems Recent Progress Patient-Stated? Author BLOOD PRESSURE - MAINTAINS BP less than 140/90 Blood Pressure No Brady Reed MD Insurance [employer] Care Teams Loading Manager Relationship Specialty Start Date End Date Pcp, No . PCP - General 10/29/24
--- OUTSIDE RECORDS SUMMARY | 2024-12-12 07:40 | XMS_ITS | Encounter Summary ---
Author Organization [facility] Address [address] [place] [address] Care Team Providers Care Plastic Technician Name Role Phone Hebert Herron MD Primary Care Provider + Hebert Herron MD Unavailable [phone] Anny Pratt [facility] Unavailable [phone] Encounter Details Date Type Department Care Team (Late st Contact Info) Description 12/07/2023 MyC Medical Advice [address] [place] [address] Hebert Herron MD [address] [place] [address] Social History Tobacco Use Types Packs/Day Years Used Date Smoking Tobacco: Never Smokeless Tobacco: Never Alcohol Use Standard Drinks/Week Comments No 0 (1 standard drink = 0.6 oz pur e alcohol) PHQ-2 Answer Date Recorded PHQ-2 Score 3 12/07/2023 Adolescent Education Answer Date Record ed Getting School Help Needed Not on file 07/31 Sex and Gender Information Value Date Recorded Sex Assigned at Not on file Legal Sex Male 4:18 AM CHURCH HISTORY TEACHER Gender Identity Not on file Sexual Orientation Not on file documented as of this encounter Plan of Treatment Not on file documented as of this encounter Visit Diagnoses Not on filedocumented in this encounter Additional Health Concerns Assessment Noted Time PHQ-9 Depression Total Score: 14 024 8:53 AM CHURCH HISTORY TEACHER documented as of this encounter Care Teams Plastic Technician Relationship Specialty Start Date End Date Hebert Herron MD PCP - General 12/27/17 Hebert Herron MD [address] [place], [place] [id number] Assigned PCP 09/04/22 Anny Pratt [facility] [address] [address] Assigned Behavioral Health Provider 02/14/24 documented as of this encounter
--- OUTSIDE RECORDS SUMMARY | 2024-12-12 07:40 | XMS_ITS | Encounter Summary ---
Author Organization [facility] Address [address] [place] [address] Care Team Providers Care Medical Staff Services Manager Name Role Phone Hebert Herron MD Primary Care Provider + Hebert Herron MD Unavailable [phone] Anny Pratt [facility] Unavailable [phone] Reason for Visit * Reason Comments Medication Refill Encounter Details Date Type Department Care Team (Late st Contact Info) Description 10/31/[address] [facility] [address] [facility] [address] [place] [address] Hebert Herron MD [address] [place] [address] Medication Refill Social History Tobacco Use Types Packs/Day Years Used Date Smoking Tobacco: Never Smokeless Tobacco: Never Alcohol Use Standard Drinks/Week Comments No 0 (1 standard drink = 0.6 oz pur e alcohol) PHQ-2 Answer Date Recorded PHQ-2 Score 2 01/02/2024 Adolescent Education Answer Date Record ed Getting School Help Needed Not on file 07/31 Sex and Gender Information Value Date Recorded Sex Assigned at Not on file Legal Sex Male 4:18 AM DECKHAND OYSTER DREDGE Gender Identity Not on file Sexual Orientation Not on file documented as of this encounter Plan of Treatment Not on file documented as of this encounter Visit Diagnoses Diagnosis Type 2 diabetes mellitus without complication, without long-term current use of insulin (H) documented in this encounter Additional Health Concerns Assessment Noted Time PHQ-9 Depression Total Score: 8 12/14/19 24 11:46 AM DECKHAND OYSTER DREDGE documented as of this encounter Care Teams Medical Staff Services Manager Relationship Specialty Start Date End Date Hebert Herron MD PCP - General 12/27/17 Hebert Herron MD [address] [place], [place] [id number] Assigned PCP 09/04/22 Anny Pratt LP[facility] [address] [address] Assigned Behavioral Health Provider 02/14/24 documented as of this encounter
--- OUTSIDE RECORDS SUMMARY | 2024-12-12 07:40 | XMS_ITS | Encounter Summary ---
Author Organization [facility] Address [address] [place] [address] Care Team Providers Care Wood Heel Finisher Name Role Phone Hebert Herron MD Primary Care Provider + Hebert Herron MD Unavailable [phone] Anny Pratt [facility] Unavailable [phone] Reason for Visit * Reason Onset Date Comments Refill Request 08/25/2022 Encounter Details Date Type Department Care Team (Late st Contact Info) Description 08/25/[address] [place] [address] Hebert Herron MD [address] [place] [address] Refill Request Social History Tobacco Use Types Packs/Day Years Used Date Smoking Tobacco: Never Smokeless Tobacco: Never Alcohol Use Standard Drinks/Week Comments No 0 (1 standard drink = 0.6 oz pur e alcohol) PHQ-2 Answer Date Recorded PHQ-2 Score 0 08/26/2022 Sex and Gender Information Value Date Recorded Sex Assigned at Not on file Legal Sex Male 4:18 AM DATABASE DESIGNER Gender Identity Not on file Sexual Orientation Not on file COVID-19 Exposure Response Date Recorded In the last 10 days, have yo u been in contact with someone who was confirmed or suspected to have Coronavirus/COVID-19? No / Unsure 08/26/2022 8:49 AM CDT documented as of this encounter Miscellaneous Notes * Telephone Encounter - Ninfa Herrera RN - 08/26/2022 4:16 PM CDT Routing refill request to provider for review/approval because: Labs not current: No lab results for creatinine, potassium and sodium on file Medication is reported/historical Ninfa Herrera RN [facility] documented in this encounter Plan of Treatment Not on file documented as of this encounter Visit Diagnoses Not on filedocumented in this encounter Care Teams Wood Heel Finisher Relationship Specialty Start Date End Date Hebert Herron MD PCP - General 12/27/17 Hebert Herron MD [address] [place], [place] [address] Assigned PCP 09/04/22 Anny Pratt [facility] [address] [id number] Assigned Behavioral Health Provider 02/14/24 documented as of this encounter
--- OUTSIDE RECORDS SUMMARY | 2024-12-12 07:40 | XMS_ITS | Clinical Summary ---
Author Organization [facility] Address [address] [place] [address] Care Team Providers Care Sheeter Machine Operator Name Role Phone Hebert Herron MD Primary Care Provider + Hebert Herron MD Unavailable [phone] Anny Pratt [facility] Unavailable [phone] Allergies Active Allergy Reactions Criticality Noted Date Comments Chlorthalidone 06/14/2014 Other reaction(s): Hypokalemia Lisinopril Cough 06/14/2014 Medications ASPIRIN PO Take 81 mg by mouth daily Active blood glucose monitoring (NO BRAND SPECIFIED) meter device kitIndications: Type 2 diabetes mellitus without complication, without long-term current use of insulin (H) Use to test blood sugar once daily or as directed. Preferred blood glucose meter OR supplies to accompany: Blood Glucose Monitor Brands: per insurance. 1 kit 4 Active blood glucose (NO BRAND SPECIFIED) test stripIndication s:Type 2 diabetes mellitus without complication, without long-term current use of insulin (H) Use to test blood sugar once daily or as directed. To accompany: Blood Glucose Monitor Brands: per insurance. 100 strip 6 4 Active thin (NO BRAND SPECIFIED) lancetsIndicati ons:Type 2 diabetes mellitus without complication, without long-term current use of insulin (H) Use with lanceting device. To accompany: Blood Glucose Monitor Brands: per insurance. 100 each 6 4 Active amLODIPine (NORVASC) 5 MG tabletIndicatio ns:HTN, goal below 140/90 TAKE ONE TABLET BY MOUTH ONE TIME DAILY 90 tablet 1 4 Active losartan (COZAAR) 100 MG tabletIndicatio ns:HTN, goal below 140/90 TAKE ONE TABLET BY MOUTH ONE TIME DAILY 90 tablet 4 Active metFORMIN (GLUCOPHAGE XR) 500 MG 24 hr tabletIndicatio ns:Type 2 diabetes mellitus without complication, without long-term current use of insulin (H) Take 2 tablets (1,000 mg) by mouth daily with dinner 60 tablet 5 Active Active Problems Problem Noted Date Diagnosed Date Diabetes mellitus, type 2 02/03/2023 Cervical radiculopathy 12/27/2017 A-fib 06/14/2014 Resolved Problems Problem Noted Date Diagnosed Date Resolved Date Morbid obesity 02/03/2023 12/09/2023 CARDIOVASCULAR SCREENING; LD L GOAL LESS THAN 130 10/12/2012 12/09/2023 HTN, goal below 140/90 10/12/201212/09 Labyrinthitis 10/12/2012 12/09/2023 Obesity 10/12/2012 11/25/2023 Encounters Date Type Department Care Team Description 10/31/2024 Refill [facility] [address] [place] [phone] Hebert Herron MD Medication Refill 10/13/2024 Refill [facility] [address] [place] [phone] Hebert Herron MD Medication Refill 09/17/2024 Refill [facility] [address] [place] [phone] 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 Medication Refill from Last 3 Months Immunizations Name Administration Dates Next Due COVID-19 MONOVALENT 12+ (Pfizer) 02/17/2021,12/23 Influenza (IIV3) PF 10/19/2012,09/08/2011,2005 Influenza Vaccine 18-64 (Flublok) 07/02/2020 Influenza Vaccine >6 months,quad, PF 07/28/2016, 07/19/2015 Influenza Vaccine, 6+MO IM ( QUADRIVALENT W/PRESERVATIVES) 07/26/2017 Polio, Unspecified 12/20/1962,11/08/1962 TDAP (Adacel,Boostrix) 07/22/2023,09/17/2013 TDAP Vaccine (Adacel) 10/19/2012 Family History Medical History Relation Comments Breast Cancer Brother Cerebrovascular Disease Other Relation Status Comments Brother Other Social History Tobacco Use Types Packs/Day Years Used Date Smoking Tobacco: Never Smokeless Tobacco: Never Tobacco Cessation:Counseling Given: Not Answered Alcohol Use Standard Drinks/Week Comments No 0 (1 standard drink = 0.6 oz pur e alcohol) PHQ-2 Answer Date Recorded PHQ-2 Score 2 01/02/2024 Adolescent Education Answer Date Record ed Getting School Help Needed Not on file 07/31 Sex and Gender Information Value Date Recorded Sex Assigned at Not on file Legal Sex Male 4:18 AM CUT OUT STITCHER Gender Identity Not on file Sexual Orientation Not on file Last Filed Vital Signs Vital Sign Reading Time Taken Comments Blood Pressure 120/80 02/03/2023 2:14 PM CDT Pulse 79 02/03/2023 2:14 PM CDT Temperature 36.7 C (98 F) 02/03/2023 2:14 PM CDT Respiratory Rate 20 02/03/2023 2:14 PM CDT Oxygen Saturation 96% 02/03/2023 2:14 PM CDT Inhaled Oxygen Concentration - - Weight 126 kg (277 lb 11.2 oz) 02/03/2023 2:14 P M CDT Height 180.3 cm (5' 11) 02/03/2023 2:14 PM CDT Body Mass Index 38.73 02/03/2023 2:14 PM CDT Plan of Treatment Health Maintenance Due Date Last Done Comments ADVANCE CARE PLANNING 1958 CT COLONOGRAPHY 1958 EYE EXAM 1960 FIT 1958 FLEX SIG 1958 sDNA (Cologuard) 1958 Pneumococcal Vaccine: 50+ Years (1 of 2 - PCV) 1977 ZOSTER IMMUNIZATION (1 of 2) 2008 MICROALBUMIN 10/12/2013 10/12/2012 RSV VACCINE (1 - Risk 60-74 years 1-dose series) 2018 COLONOSCOPY 11/07/2020 11/07/2010 COLORECTAL CANCER SCREENING 11/07/2020 FALL RISK ASSESSMENT 2023 MEDICARE ANNUAL WELLNESS VISIT 2023 DIABETIC FOOT EXAM 02/04/2024 02/03/2023, 02/03/2023 LIPID 02/04/2024 02/03/2023, 08/24, 10/19/2012 A1C 02/28/2024 11/30/2023, 01/22, 09/02/2022, Additional history exists COVID-19 Vaccine ( season) 2024 02/17/2021, 01/17/2021 INFLUENZA VACCINE (#1) 2024 , 07/26/2017, 07/28/2016, Additional history exists PHQ-2 (once per calendar year) 2024 01/02/2024, 12/21/2023, 12/14/2023, Additional history exists ANNUAL REVIEW OF HM ORDERS 11/25/2024 11/25/2023, BMP 11/30/2024 11/30/2023, 12/2021, 10/12/2012, Additional history exists DTAP/TDAP/TD IMMUNIZATION (4 - Td or Tdap) 07/22/2033 07/22/2023, 09/17/2013, 10/19/2012 HEPATITIS C SCREENING Completed 08/26/2022 HPV IMMUNIZATION Aged Out No longer e ligible based on patient's age to complete this topic MENINGITIS IMMUNIZATION Aged Out No l onger eligible based on patient's age to complete this topic Medical Devices Implanted Type Area Erosion Control Coordinator Device Identifier Shelf Expiration Date Model / Serial / Lot Graft Bone Foam Pack Vitoss 2.5ml Bio Active Implanted:Qt y: 1 on 12/27/2017 by Yimi Gutierrez MD at [facility] Bone/Tissue /Biologic N/A: Spine Cervical ORTHOVITA 11/20/[id number] / / [id number] Imp Spacer Strk Avs As [id number] 4deg [id number] Implanted:Qt y: 2 on 12/27/2017 by Yimi Gutierrez MD at [facility] Metallic Hardware/An chor N/A: Spine Cervical [employer]MAL [employer] [id number] / / [id number] Imp Scr Strk Aviator Fixed Self Drill 4x14mm Purple [id number] Implanted:Qt y: 6 on 12/27/2017 by Yimi Gutierrez MD at [facility] Metallic Hardware/An chor N/A: Spine Cervical [employer] [id number] / / [id number] Imp Plate Strk Aviator 2 Level Size 32 [id number] Implanted:Qt y: 1 on 12/27/2017 by Yimi Gutierrez MD at [facility] Metallic Hardware/An chor N/A: Spine Cervical [employer]MAL [employer] [id number] / / [id number] Procedures Procedure Name Priority Date/Time Associated Diagnosis Comments COMPREHENSIVE METABOLIC PANEL Routine 11/30/2023 3:25 PM CUT OUT STITCHER Cognitive and behavioral changes HEMOGLOBIN A1C Routine 11/30/2023 3:25 PM CUT OUT STITCHER Type 2 diabetes mellitus without complication, without long-term current use of insulin (H) LIPID REFLEX TO DIRECT LDL PANEL Routine 02/03/2023 3:04 PM CDT Type 2 diabetes mellitus without complication, without long-term current use of insulin (H) HEPATITIS C SCREEN REFLEX TO HCV RNA QUANT AND GENOTYPE Routine 08/26/2022 9:20 AM CDT Need for hepatitis C screening test ALBUMIN RANDOM URINE QUANTITATIVE Routine 10/12/2012 2:47 PM CUT OUT STITCHER Elevated serum creatinine HIM COLONOSCOPY SCAN Routine 11/07/2010 from Last 3 Months or Most Recently Relevant to Health Maintenance Results * (ABNORMAL) Hemoglobin A1c (11/30/2023 3:25 PM CUT OUT STITCHER) Hemoglobin A1C 7.4(H) 0.0 - 5.6 % 11/30/2023 3:36 PM CUT OUT STITCHER [facility] Comment: Normal <5.7% Prediabetes 5.7-6.4% Diabetes 6.5% or higher Note: Adopted from ADA consensus guidelines. Blood BLOOD SPECIMEN / Unknown Venipuncture / Unknown 11/30/2023 3:25 PM CUT OUT STITCHER 11/30/2023 3:25 PM CUT OUT STITCHER us Hebert Herron MD LAB - BLOOD ORDERABLES F inal Result [facility] [address], [address] [place] [address], [facility] [phone] * (ABNORMAL) Comprehensive metabolic panel (BMP + Alb, Alk Phos, ALT, AST, Total. Bili, TP) (11/30/2023 3:25 PM CUT OUT STITCHER) Pathologist [facility] Sodium 139 135 - 145 mmol/L 12/01/2023 6:04 PM CUT OUT STITCHER [facility] Comment:Reference intervals for this test were updated on 07/19/2023 to more accurately reflect our healthy population. There may be differences in the flagging of prior results with similar values performed with this method. Interpretation of those prior results can be made in the context of the updated reference intervals. Potassium 3.8 3.4 - 5.3 mmol/L 12/01/2023 6:04 PM CUT OUT STITCHER [facility] Carbon Dioxide (CO2) 23 22 - 29 mmol/L 12/01/2023 6:04 PM CUT OUT STITCHER [facility] Anion Gap 12 7 - 15 mmol/L 12/01/2023 6:04 PM CUT OUT STITCHER [facility] Urea Nitrogen 18.0 8.0 - 23.0 mg/dL 12/01/2023 6:04 PM CUT OUT STITCHER [facility] Creatinine 1.14 0.67 - 1.17 mg/dL 12/01/2023 6:04 PM CUT OUT STITCHER [facility] GFR Estimate 71 >60 mL/min/1. 73m2 12/01/2023 6:04 PM CUT OUT STITCHER [facility] Calcium 9.2 8.8 - 10.2 mg/dL 12/01/2023 6:04 PM CUT OUT STITCHER [facility] Chloride 104 98 - 107 mmol/L 12/01/2023 6:04 PM CUT OUT STITCHER [facility] Glucose 154(H) 70 - 99 mg/dL 12/01/2023 6:04 PM CUT OUT STITCHER [facility] Alkaline Phosphatase 58 40 - 150 U/L 12/01/2023 6:04 PM CUT OUT STITCHER [facility] Comment:Reference intervals for this test were updated on 09/06/2023 to more accurately reflect our healthy population. There may be differences in the flagging of prior results with similar values performed with this method. Interpretation of those prior results can be made in the context of the updated reference intervals. AST 18 0 - 45 U/L 12/01/2023 6:04 PM CUT OUT STITCHER [facility] Comment:Reference intervals for this test were updated on 04/04/2023 to more accurately reflect our healthy population. There may be differences in the flagging of prior results with similar values performed with this method. Interpretation of those prior results can be made in the context of the updated reference intervals. ALT 14 0 - 70 U/L 12/01/2023 6:04 PM CUT OUT STITCHER [facility] Comment:Reference intervals for this test were updated on 04/04/2023 to more accurately reflect our healthy population. There may be differences in the flagging of prior results with similar values performed with this method. Interpretation of those prior results can be made in the context of the updated reference intervals. Protein Total 7.1 6.4 - 8.3 g/dL 12/01/2023 6:04 PM CUT OUT STITCHER [facility] Albumin 4.2 3.5 - 5.2 g/dL 12/01/2023 6:04 PM CUT OUT STITCHER [facility] Bilirubin Total 0.5 <=1.2 mg/dL 12/01/2023 6:04 PM CUT OUT STITCHER [facility] Blood BLOOD SPECIMEN / Unknown Venipuncture / Unknown 11/30/2023 3:25 PM CUT OUT STITCHER 11/30/2023 3:25 PM CUT OUT STITCHER us Hebert Herron MD LAB - BLOOD ORDERABLES F inal Result [facility] [address] [facility], [address] [address], [facility] [phone] * (ABNORMAL) Lipid panel reflex to direct LDL Fasting (02/03/2023 3:04 PM CDT) Cholesterol 213(H) <200 mg/dL 02/03/2023 9:42 PM CDT [facility] Triglycerides 142 <150 mg/dL 02/03/2023 9:42 PM CDT [facility] Direct Measure HDL 53 >=40 mg/dL 02/03/2023 9:42 PM CDT [facility] LDL Cholesterol Calculated 132(H) <=100 mg/dL 02/03/2023 9:42 PM CDT [facility] Non HDL Cholesterol 160(H) <130 mg/dL 02/03/2023 9:42 PM CDT [facility] Blood VENOUS BLOOD / Unknown Venipuncture / Unknown 02/03/2023 3:04 PM CDT 02/03/2023 3:04 PM CDT Narrative [facility] - 02/03/2023 9:42 PM CDT Cholesterol Desirable: <200 mg/dL Triglycerides Normal: Less than 150 mg/dL Borderline High: 150-199 mg/dL High: 200-499 mg/dL Very High: Greater than or equal to 500 mg/dL Direct Measure HDL Female: Greater than or equal to 50 mg/dL Male: Greater than or equal to 40 mg/dL LDL Cholesterol Desirable: <100mg/dL Above Desirable: 100-129 mg/dL Borderline High: 130-159 mg/dL High: 160-189 mg/dL Very High: >= 190 mg/dL Non HDL Cholesterol Desirable: 130 mg/dL Above Desirable: 130-159 mg/dL Borderline High: 160-189 mg/dL High: 190-219 mg/dL Very High: Greater than or equal to 220 mg/dL us Hebert Herron MD LAB - BLOOD ORDERABLES F inal Result [facility] [address] [facility], [address] [place] [address], [facility] [phone] * Hepatitis C Screen Reflex to HCV RNA Quant and Genotype (08/26/2022 9:20 AM CDT) Hepatitis C Antibody Nonreactive Nonreactive 08/27/2022 9:35 AM CDT [facility]/EN DO Blood STRUCTURE OF RIGHT UPPER LIMB / Unknown Venipuncture / Unknown 08/26/2022 9:20 AM CDT 08/26/2022 9:21 AM CDT Narrative [facility]TY CORE/PROT/ENDO - 08/27/2022 9:35 AM CDT Assay performance characteristics have not been established for newborns, infants, and children. us Hebert Herron MD LAB - BLOOD ORDERABLES F inal Result SPECIALTY CORE/PROT/ENDO [facility]/Prot/Endo [address] [facility], [address] [phone] * Microalbumin quantitative random urine (10/12/2012 2:47 PM CUT OUT STITCHER) Creatinine Urine 201 mg/dL [facility] Albumin Urine mg/L 8 mg/L [facility] Albumin Urine mg/g Cr 3.98 0 - 17 mg/g Cr [facility] Urine specimen (specimen) 10/12/2012 2:47 PM CUT OUT STITCHER 10/12/2012 2:50 PM CUT OUT STITCHER Venu Schmid MD LAB - URINE ORDERABLES Final Re sult Performing Organization Address [facility]/ZIP Co de Phone Number [facility] [address] [place] [address] * - HIM Screen Colonoscopy Scan (11/07/2010) Narrative Lilliam Phillips - 11/07/2010 Patient Reports: Please abstract the following data from this visit with this patient into the appropriate field in Epic: Colonoscopy done on this date: 10/24/2010 (approximately), by this group: [facility] results. Patient Reported PROCEDURES Final Result from Last 3 Months or Most Recently Relevant to Health Maintenance Insurance [employer]ER[employer] Care Teams Sheeter Machine Operator Relationship Specialty Start Date End Date Hebert Herron MD PCP - General 12/27/17 Hebert Herron MD [address] [place] [address] Assigned PCP 09/04/22 Anny Pratt LP[facility] [address] [address] Assigned Behavioral Health Provider 02/14/24
--- OUTSIDE RECORDS SUMMARY | 2024-12-12 07:40 | XMS_ITS | Encounter Summary ---
Author Organization [facility] Address [address] [place] [address] Care Team Providers Care Public Works Manager Name Role Phone Hebert Herron MD Primary Care Provider + Hebert Herron MD Unavailable [phone] Anny Pratt [facility] Unavailable [phone] Encounter Details Date Type Department Care Team (Late st Contact Info) Description 12/15/2023 MyC Medical Advice [facility] Mental Health & Addiction [facility] [address] [place] [phone] Anny Pratt LP[facility] [address] [place] [address] Social History Tobacco Use Types [...] on file Legal Sex Male 4:18 AM DIRECTOR PROCESS Gender Identity Not on file Sexual Orientation Not on file documented as of this encounter Plan of Treatment Not on file documented as of this encounter Visit Diagnoses Not on filedocumented in this encounter Additional Health Concerns Assessment Noted Time PHQ-9 Depression Total Score: 8 12/14/19 24 11:46 AM DIRECTOR PROCESS documented as of this encounter Care Teams Public Works Manager Relationship Specialty Start Date End Date Hebert Herron MD PCP - General 12/27/17 Hebert Herron MD [address] [place], [place] [phone] Assigned PCP 09/04/22 Anny Pratt LP[facility] [address] [phone] Assigned Behavioral Health Provider 02/14/24 documented as of this encounter
--- OUTSIDE RECORDS SUMMARY | 2024-12-12 07:40 | XMS_ITS | Encounter Summary ---
Author Organization [facility] [place] Address [address] [place] [address] Care Team Providers Care Solution Developer Name Role Phone Hebert Herron MD Primary Care Provider + Hebert Herron MD Unavailable [phone] Anny Pratt [facility] Unavailable [phone] Reason for Visit * Reason Onset Date Comments MyChart Communication 11/30/2023 Encounter Details Date Type Department Care Team (Late st Contact Info) Description 11/30/2023 MyC Medical Advice [address] [place] [address] Hebert Herron MD [address] [place] [address] MyChart Communication Social History Tobacco [...] on file Legal Sex Male 4:18 AM COMPUTERIZED MILL MILL RECORDER Gender Identity Not on file Sexual Orientation Not on file documented as of this encounter Miscellaneous Notes * Telephone Encounter - Razia Wilder RN - 11/30/2023 11:58 AM CST Sent MyChart message to patient. Sharan Wilder, gas station cashier [facility] 11:59 AM 11/30/2023 UTERIZED MILL MILL RECORDER documented in this encounter Plan of Treatment Not on file documented as of this encounter Visit Diagnoses Not on filedocumented in this encounter Care Teams Solution Developer Relationship Specialty Start Date End Date Hebert Herron MD PCP - General 12/27/17 Hebert Herron MD [address] [place], [place] [address] Assigned PCP 09/04/22 Anny Pratt LP[facility] [address] [phone] Assigned Behavioral Health Provider 02/14/24 documented as of this encounter
--- OUTSIDE RECORDS SUMMARY | 2024-12-12 07:40 | XMS_ITS | Encounter Summary ---
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 Gender Identity Not on file Sexual Orientation Not on file documented as of this encounter Plan of Treatment Not on file documented as of this encounter Visit Diagnoses Not on filedocumented in this encounter Additional Health Concerns Assessment Noted Time PHQ-9 Depression Total Score: 8 12/14/19 24 11:46 AM ADMINISTRATIVE NURSING SUPERVISOR documented as of this encounter Care Teams Core Laying Machine Operator Relationship Specialty Start Date End Date Hebert Herron MD PCP - General 12/27/17 Hebert Herron MD [address] [place] [address] Assigned PCP 09/04/22 Anny Pratt [facility] [address] [phone] Assigned Behavioral Health Provider 02/14/24 documented as of this encounter
--- NOTE | 2024-12-12 07:52 | CRLHL7_ITS ---
For Patients: As a result of the Cures Act, medical imaging exams and procedure reports are released immediately into your electronic medical record. You may view this report before your referring provider. If you have questions, please contact your health care provider. Indication: Palpitations. Technique: One view(s) of the chest. Comparison: 10/25/2022. Findings: Unchanged enlarged cardiomediastinal silhouette and pulmonary vasculature. Lungs are well inflated. No focal consolidation, pleural effusion or pneumothorax. No acute osseous abnormality. Lower cervical ACDF. Impression: No acute cardiopulmonary abnormality identified. Similar cardiomegaly. Dictated by Ada Moyer MD @ 12/12/2024 8:25:15 AM (Electronically Signed)
--- NOTE | 2024-12-12 08:04 | ED.ARRPALP ---
HPI - Arrhythmia/Palpitations General Time Seen by Provider: 08:04 Date Seen: 12/12/24 Chief Complaint: Arrhythmia/Palpitations Stated Complaint: Afib Time Seen by Provider: 12/12/24 08:03 Source: patient, RN notes reviewed and old records reviewed Mode of arrival: ambulatory Limitations: no limitations History of Present Illness HPI narrative: This 64-year-old male is coming in with onset of atrial fibrillation about 5:00 a.m. this morning. He was sitting in his chair and started to feel funny in his chest consistent with his atrial fibrillation. He did not feel this way last night. He has had paroxysmal atrial fibrillation, is on an 81 mg aspirin. He has not been sick with anything, no cough or cold symptoms, no fevers. Has no chest pain or shortness of breath with this. No edema. This feels similar to his prior episode. He states he was cardioverted here about 5 years ago. He has had no alcohol use. He states he used to drink but stopped. He was last cardioverted on 07/13/2022. He was given Versed and fentanyl and cardioverted with 100 joules after 1 attempt. He did have hypokalemia at that time. complaint: rapid heart beat, heart racing and palpitations Related Data Home Medications ?Medication ?Instructions ?Recorded ?Confirmed aspirin 81 mg capsule 81 mg PO DAILY 07/13/22 12/12/24 amlodipine 5 mg tablet 5 mg PO DAILY 10/25/22 12/12/24 metformin 500 mg tablet 500 mg PO DAILY 10/25/22 12/12/24 Previous Rx's ?Medication ?Instructions ?Recorded losartan 100 mg tablet 100 mg PO QDAY #30 tabs 07/07/22 apixaban 5 mg tablet (Eliquis) 5 mg PO BID #60 tabs 12/12/24 Allergies Allergy/AdvReac Type Severity Reaction Status Date / Time No Known Drug Allergies Allergy Verified 12/12/24 07:47 Review of Systems Status of ROS: Reports: 6 or more systems reviewed and unremarkable except as noted in History and below [facility] Medical History Paroxysmal atrial fibrillation ?I48.0 - Paroxysmal atrial fibrillation (ICD-10) HTN (hypertension) ?I10 - Essential (primary) hypertension (ICD-10) Social History 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[employer], 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, 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 Smoking Status: Never smoker Do you use any of these nicotine containing products: None Second hand tobacco smoke exposure: No How often do you have a drink containing alcohol: never How often do you have six or more drinks on one occasion: Never AUDIT-C Alcohol total score: 0 Non-prescribed substance use: denies use service: No Exam Const: Vital Signs, click to edit/add: Vital Signs - 24 hr 12/12/24 07:45 12/12/24 07:47 12/12/24 07:48 Temperature 97.3 F L Pulse Rate 128 H 122 H Pulse Rate [Pulse Oximeter] 126 H Respiratory Rate 20 9 L 19 Blood Pressure 125/87 Blood Pressure [Le ft Upper Arm] 125/87 Pulse Oximetry 98 98 97 Oxygen Delivery Me thod Room Air 12/12/24 08:00 12/12/24 08:03 12/12/24 08:24 Temperature Pulse Rate 83 123 H 84 Pulse Rate [Pulse Oximeter] Respiratory Rate 6 L 9 L 16 Blood Pressure 93/83 95/75 Blood Pressure [Le ft Upper Arm] Pulse Oximetry 97 98 96 Oxygen Delivery Me thod 12/12/24 08:25 12/12/24 08:30 12/12/24 08:31 Temperature Pulse Rate 89 75 77 Pulse Rate [Pulse Oximeter] Respiratory Rate 15 10 L 12 Blood Pressure 111/78 Blood Pressure [Le ft Upper Arm] Pulse Oximetry 96 96 95 Oxygen Delivery Me thod 12/12/24 09:00 12/12/24 09:06 12/12/24 09:30 Temperature Pulse Rate 79 81 78 Pulse Rate [Pulse Oximeter] Respiratory Rate 21 10 L 16 Blood Pressure 115/88 Blood Pressure [Le ft Upper Arm] Pulse Oximetry 97 96 97 Oxygen Delivery Me thod 12/12/24 09:31 12/12/24 10:01 12/12/24 10:04 Temperature Pulse Rate 79 Pulse Rate [Pulse Oximeter] Respiratory Rate 19 14 10 L Blood Pressure 110/83 156/95 H Blood Pressure [Le ft Upper Arm] Pulse Oximetry 98 Oxygen Delivery Me thod 12/12/24 10:07 12/12/24 10:10 12/12/24 10:11 Temperature Pulse Rate 92 54 L 54 L Pulse Rate [Pulse Oximeter] Respiratory Rate 16 18 26 H Blood Pressure 120/83 131/72 117/71 Blood Pressure [Le ft Upper Arm] Pulse Oximetry 99 100 99 Oxygen Delivery Mn thod 12/12/24 10:16 12/12/24 10:21 12/12/24 10:27 Temperature Pulse Rate 55 L 55 L 55 L Pulse Rate [Pulse Oximeter] Respiratory Rate 21 14 12 Blood Pressure 111/71 110/79 98/73 Blood Pressure [Le ft Upper Arm] Pulse Oximetry 99 99 [facility] 10:30 12/12/24 10:31 12/12/24 10:34 Temperature Pulse Rate 52 L 54 L 52 L Pulse Rate [Pulse Oximeter] Respiratory Rate 8 L 8 L 14 Blood Pressure 68/51 L 107/69 Blood Pressure [Le ft Upper Arm] Pulse Oximetry 98 98 98 Oxygen Delivery Mn thod 12/12/24 10:36 12/12/24 10:41 12/12/24 10:46 Temperature Pulse Rate 50 L 51 L 50 L Pulse Rate [Pulse Oximeter] Respiratory Rate 12 Blood Pressure 122/76 117/77 118/79 Blood Pressure [Le ft Upper Arm] Pulse Oximetry 99 97 [facility] 12/12/24 10:55 12/12/24 10:59 12/12/24 11:00 Temperature Pulse Rate 56 L 54 L 55 L Pulse Rate [Pulse Oximeter] Respiratory Rate Blood Pressure Blood Pressure [Le ft Upper Arm] Pulse Oximetry 99 97 97 [facility] 12/12/24 11:29 Temperature Pulse Rate Pulse Rate [Pulse Oximeter] Respiratory Rate Blood Pressure Blood Pressure [Le ft Upper Arm] Pulse Oximetry [address] [facility] Patient is alert, interactive, no apparent distress. Sclera clear, face atraumatic. Neck thick but supple, no adenopathy. Lungs are clear, good air entry, no wheezing or crackles. CV irregularly irregular, fast, no murmur. Abdomen is soft, no rebound or guarding, no organomegaly, no tenderness. He has no lower extremity edema. Patient was ambulatory into the ED of his own accord. residential monitor shows atrial fibrillation with rapid ventricular response. He is currently in the 120s to 130s. Documenting provider has reviewed patient's vital signs: yes Course Course ED Course: Patient last ate last night, has not had anything to eat or drink this morning. Does sound like he sure he went into this this morning. We will likely cardiovert, need to see electrolytes 1st. He will be on cardiac monitoring and pulse oximetry. Will try a IV dose of metoprolol for some rate control. Reevaluation(s) Time of Reevaluation #1: 09:05 Reevaluation #1: Patient's heart rate is now in the 80s but still in atrial fibrillation on the residential monitor. He would prefer cardioversion, have discussed with him the risk of cardioversion is stroke in patients that have been in this intermittently that are unaware. I have stressed to him that stroke is a true phenomenon. Will talk to Cardiology, awaiting his potassium and magnesium. Will give magnesium for relative low end normal magnesium at 1.9. Potassium just mildly low at 3.4. Time of Reevaluation #2: 09:59 Reevaluation #2: Anesthesia is here to assist with sedation. We are prepping patient for cardioversion and plan to cardiovert, patient has been consented. 10:16 a.m.: Patient was cardioverted using 120 joules, single shock delivered with return to sinus bradycardia. Patient is awakening, he states he can feel that his heart feels better, no palpitations now. No focal neurologic deficits, patient is still groggy. He needs to complete his potassium, magnesium and have further improvement from his sedation. He will continue to be monitored. Will plan on discharge to home after he has completed his IV medications and meets post sedation criteria. Consultations Consultation #1: Spoke with Dr. Zambrano from [facility]. Agrees with cardioversion as long as the patient is extremely confident that he just went into this and has not been in it intermittently without knowing. He would put the patient on Eliquis for minimum of 30 days. They will get the patient scheduled for an out patient follow up, they will contact him. Time: 09:11 Vital Signs Vital signs: Initial Vital Signs Temperature 97.3 F L 12/12/24 07:45 Temperature Source Temporal Artery Scan 12/12/24 07:45 Pulse Rate 126 H 12/12/24 07:45 Respiratory Rate 20 12/12/24 07:45 Blood Pressure 125/87 12/12/24 07:45 Blood Pressure Mean 99 02/19/25 07:45 Blood Pressure Position Semi-Fowlers 12/12/24 07:45 Pulse Oximetry 98 12/12/24 07:45 Oxygen Delivery Method Room Air 12/12/24 07:45 Vital Signs Temperature 97.3 F L 12/12/24 07:45 Pulse Rate 126 H 12/12/24 07:45 Respiratory Rate 20 12/12/24 07:45 Blood Pressure 125/87 12/12/24 07:45 Pulse Oximetry 98 12/12/24 07:45 Oxygen Delivery Method Room Air 12/12/24 07:45 Temperature 97.3 F L 12/12/24 07:45 Pulse Rate 55 L 12/12/24 11:00 Respiratory Rate 6 L 12/12/24 10:46 Blood Pressure 118/79 12/12/24 10:46 Pulse Oximetry 99 12/12/24 11:29 Oxygen Delivery Method Room Air 12/12/24 11:29 Medications Administered Medications: Discontinued Medications Generic Name Dose Route Start Last Admin Trade Name Freq PRN Reason Stop Dose Admin Apixaban 5 mg 12/12/24 09:12 12/12/24 09:23 Apixaban 5 Mg Tablet PO 12/12/24 09:13 5 mg ONCE ONE Administration Sodium Chloride 250 mls @ 250 mls/hr 12/12/24 08:17 12/12/24 09:22 0.9 % Sodium Chloride 250 Ml IV 12/12/24 09:16 Infused .Q1H ONE Infusion Potassium Chloride 10 meq in 100 mls @ 100 mls/hr 12/12/24 08:39 12/12/24 11:10 Potassium Chloride IVPB 12/12/24 09:38 Infused ONCE ONE Infusion Magnesium Sulfate/Dextrose 1 gm in 100 mls @ 100 mls/hr 12/12/24 08:42 12/12/24 11:10 Magnesium Sulf 1 G/100 Ml-D5w IVPB 12/12/24 09:41 Infused ONCE ONE Infusion Sodium Chloride 500 mls @ 500 mls/hr 12/12/24 09:55 12/12/24 11:17 0.9 % Sodium Chloride 500 Ml IV 12/12/24 10:54 Not Given .Q1H ONE Sodium Chloride 250 mls @ 250 mls/hr 12/12/24 09:55 12/12/24 11:10 0.9 % Sodium Chloride 250 Ml IV 12/12/24 10:54 Infused .Q1H ONE Infusion Metoprolol Tartrate 5 mg 12/12/24 08:17 12/12/24 08:26 Metoprolol Tartrate 1 Mg/Ml Inj IVP 12/12/24 08:18 5 mg ONCE ONE Administration MDM - Arrhythmia/Palpitations Lab Data Attestation: I reviewed the patient's lab results. Labs: Lab Results 12/12/24 12/12/24 Range/Units 07:50 08:00 WBC 7.32 (4.50-11.00) K/uL RBC 5.20 (4.30-5.90) m/uL Hgb 14.8 (13.5-17.5) gm/dL Hct 44.8 (37.0-53.0) % MCV 86 (80-100) fL MCH 29 (26-34) pg MCHC 33 (32-36) gm/dL RDW Coeff of Yaakov 12.4 (11.5-15.5) % Plt Count 305 (140-440) K/uL Neut % (Auto) 49.5 (42.0-72.0) % Lymph % (Auto) 38.5 (20-44) % [place] % (Auto) 8.5 (0.0-11.0) % Eos % (Auto) 2.7 (0.0-7.0) % Baso % (Auto) 0.5 (0.0-3.0) % Neut # (Auto) 3.62 (1.7-7.0) K/uL Lymph # (Auto) 2.82 (0.90-2.90) K/uL [place] # (Auto) 0.60 (0.00-0.90) K/UL Eos # (Auto) 0.20 (0.00-0.50) K/uL Baso # (Auto) 0.04 (0.00-0.30) K/uL Abs Immat Gran (auto) 0.02 (0.00-0.30) K/uL Imm/Tot Granulo (auto) 0.3 % Sodium 138 (135-149) mmol/L Potassium 3.4 L (3.6-5.1) mmol/L Chloride 104 (96-114) mmol/L Carbon Dioxide 25 (20-32) mmol/L Anion Gap 9 (7-15) mEq/L BUN 18 (7-30) mg/dL Creatinine 1.0 (0.5-1.5) mg/dL Estimated Creat Clear 79.76 Estimated GFR 83 ml/min Glucose 223 H (60-115) mg/dL Calcium 8.5 (8.4-10.6) mg/dL Magnesium 1.9 (1.5-2.6) mg/dL NT-Pro-B Natriuret Pep 170 pg/mL POC Troponin I 0.00 L (0.01-0.04) ng/ml Imaging Data Chest x-ray: Attestation: I have reviewed the pertinent imaging results. My impression: I do not appreciate any congestive heart failure on my preliminary review. Radiologist's impression: Patient: CANDY MINOR Facility:?[facility] Patient ID:?[id number] Site Patient ID:?[id number]. Site :?[id number] Study:?XRay-Chest 1 VIEW PORTABLE-12/12/2024 8:14:37 AM Ordering Physician:Angelique Lea Final Report: Indication: Palpitations. Technique: One view(s) of the chest. Comparison: 10/25/2022. Findings: Unchanged enlarged cardiomediastinal silhouette and pulmonary vasculature. Lungs are well inflated. No focal consolidation, pleural effusion or pneumothorax. No acute osseous abnormality. Lower cervical ACDF. Impression: No acute cardiopulmonary abnormality identified. Similar cardiomegaly. Dictated by Ada Moyer MD @ 12/12/2024 8:25:15 AM (Electronic Signature) ECG Data Attestation: I personally reviewed and interpreted this ECG as follows: (Atrial fibrillation with rapid ventricular response, 134 beats per minute. Bifascicular block. No definitive ischemic change noted.) ECG interpretation date: 12/12/24 ECG interpretation time: 08:15 Prior ECG tracings: available for review Interpretation: Post cardioversion EKG showing sinus bradycardia, 54 beats per minute. Right bundle branch block. Flipped T-waves inferior leads as well as 1 and aVL. EKG from October of 2022 was bifascicular block. Discharge Plan Discharge Clinical Impression: Paroxysmal atrial fibrillation, Encounter for cardioversion procedure Patient Disposition: Home, Self-Care Condition: Stable Instructions: A-fib (Atrial Fibrillation) (ED), Blood Thinners (ED) Additional Instructions: Need to take Eliquis 5 mg twice a day. You can hold your aspirin while you are on the Eliquis. [facility] will be contacting you to get you a follow-up appointment with Cardiology. No driving today as you were given sedation. Do recommend having potassium and magnesium rechecked within the next 1-2 weeks at your primary clinic. Activity Level: Activity as Tolerated Prescriptions: New Eliquis 5 mg tablet 5 mg PO BID Qty: 60 2RF No Action aspirin 81 mg capsule 81 mg PO DAILY metformin 500 mg tablet 500 mg PO DAILY Patient Comments: Take 1 tablet (500 mg) by mouth 2 times daily (with meals) amlodipine 5 mg tablet 5 mg PO DAILY Patient Comments: TAKE ONE TABLET BY MOUTH ONE TIME DAILY losartan 100 mg tablet 100 mg PO QDAY Qty: 30 0RF Follow Up/Referrals: Provider,Not a Local [Primary Care Provider] - Stand Alone Forms: [facility] Info Instructions
[2024-12-12 08:14] LABS: Basophils Absolute Auto 0.04 K/uL (0.00-0.30); Basophils Percent Auto 0.5 % (0.0-3.0); Eosinophils Percent Auto 2.7 % (0.0-7.0); Hematocrit 44.8 % (37.0-53.0); Hemoglobin* 14.8 gm/dL (13.5-17.5); Immature Granulocytes Abs Auto 0.02 K/uL (0.00-0.30); Immature Granulocytes Pct Auto 0.3 %; Lymphocytes Absolute Auto 2.82 K/uL (0.90-2.90); Lymphocytes Percent Auto 38.5 % (20-44); Mean Corpuscular HGB Conc 33 gm/dL (32-36); Mean Corpuscular Hemoglobin 29 pg (26-34); Mean Corpuscular Volume 86 fL (80-100); Monocytes Percent Auto 8.5 % (0.0-11.0); Neutrophils Absolute Auto 3.62 K/uL (1.7-7.0); Neutrophils Percent Auto 49.5 % (42.0-72.0); Platelet Count* 305 K/uL (140-440); RDW Coefficient of Variation % 12.4 % (11.5-15.5); White Blood Count* 7.32 K/uL (4.50-11.00)
[2024-12-12 08:17] LABS: Slide Review Reflex No
[2024-12-12] MEDS: 0.9 % SODIUM CHLORIDE 250 ml 250 ML IV ×2 (08:22→10:22)
--- OUTSIDE RECORDS SUMMARY | 2024-12-12 08:23 | XMS_ITS | Encounter Summary ---
Author Organization [place] Address [address] [place] [address] Care Team Providers Care Chief Librarian Extension Department Name Role Phone Hebert Herron MD Primary Care Provider + Hebert Herron MD Unavailable [phone] Anny Pratt [facility] Unavailable [phone] Reason for Visit * Reason Onset Date Comments Refill Request 08/30/2022 Encounter Details Date Type Department Care Team (Late st Contact Info) Description 08/30/[address] [place] [address] Hebert Herron MD [address] [place] [address] Refill Request Social History Tobacco Use Types Packs/Day Years Used Date Smoking Tobacco: Never Smokeless Tobacco: Never Alcohol Use Standard Drinks/Week Comments No 0 (1 standard drink = 0.6 oz pur e alcohol) PHQ-2 Answer Date Recorded PHQ-2 Score 0 08/26/2022 Sex and Gender Information Value Date Recorded Sex Assigned at Not on file 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 No / Unsure 09/02/2022 2:32 PM ASSOCIATE MATERIAL HANDLER documented as of this encounter Plan of Treatment Not on file documented as of this encounter Visit Diagnoses Not on filedocumented in this encounter Care Teams Chief Librarian Extension Department Relationship Specialty Start Date End Date Hebert Herron MD PCP - General 12/27/17 Hebert Herron MD [address] [place] [address] Assigned PCP 09/04/22 Anny Pratt [facility] [address] [address] Assigned Behavioral Health Provider 02/14/24 documented as of this encounter
--- OUTSIDE RECORDS SUMMARY | 2024-12-12 08:23 | XMS_ITS | Encounter Summary ---
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
--- OUTSIDE RECORDS SUMMARY | 2024-12-12 08:23 | XMS_ITS | Clinical Summary ---
Author Organization [facility] Address [address] [place] [address] Care Team Providers Care Salesperson Florist Supplies Name Role Phone Pcp, No Primary Care [...] on file Legal Sex Male 6:31 AM COAL CONVEYOR OPERATOR Gender Identity Not on file Sexual Orientation Not on file Obstetrics History Last Filed Vital Signs Vital Sign Reading Time Taken Comments Blood Pressure 146/84 08/07/2014 9:24 AM CDT Pulse 51 08/07/2014 9:24 AM CDT Temperature 36.8 C (98.3 F) 07/17/2014 8:47 AM CDT Respiratory Rate 18 12/07/1999 12:0 0 AM COAL CONVEYOR OPERATOR Oxygen Saturation 96% 08/07/2014 9:24 AM CDT [...] Brady Reed MD Insurance [employer] Care Teams Salesperson Florist Supplies Relationship Specialty Start Date End Date Pcp, No . PCP - General 10/29/24
--- OUTSIDE RECORDS SUMMARY | 2024-12-12 08:23 | XMS_ITS | Encounter Summary ---
Author Organization [place] Address [address] [place] [address] Care Team Providers Care Siebel Crm Developer Name Role Phone Hebert Herron MD Primary Care Provider + Hebert Herron MD Unavailable [phone] Anny Pratt [facility] Unavailable Encounter Details Date Type Department Care Team (Late st Contact Info) Description 12/15/2023 MyC Medical Advice [facility] [address] [place] [phone] Anny Pratt [facility] [address] [place] [address] Social History Tobacco Use Types [...] on file Legal Sex Male 4:18 AM TOURIST AGENT Gender Identity Not on file Sexual Orientation Not on file documented as of this encounter Plan of Treatment Not on file documented as of this encounter Visit Diagnoses Not on filedocumented in this encounter Additional Health Concerns Assessment Noted Time PHQ-9 Depression Total Score: 8 12/14/19 24 11:46 AM TOURIST AGENT documented as of this encounter Care Teams Siebel Crm Developer Relationship Specialty Start Date End Date Hebert Herron MD PCP - General 12/27/17 Hebert Herron MD [address] [place], [place] [address] Assigned PCP 09/04/22 Anny Pratt [facility] [address] [id number] Assigned Behavioral Health Provider 02/14/24 documented as of this encounter
--- OUTSIDE RECORDS SUMMARY | 2024-12-12 08:23 | XMS_ITS | Encounter Summary ---
Author Organization [place] Address [address] [place] [address] Care Team Providers Care Industrial Pipefitter Journeyman Name Role Phone Hebert Herron MD Primary Care Provider + Hebert Herron MD Unavailable [phone] Anny Pratt [facility] Unavailable [phone] Reason for Visit * Reason Onset Date Comments Refill Request 08/25/2022 Encounter Details Date Type Department Care Team (Late st Contact Info) Description 08/25/[address] [place] [address] Hebert Herron MD [address] [place] [address] Refill Request Social History Tobacco Use Types Packs/Day Years Used Date Smoking Tobacco: Never Smokeless Tobacco: Never Alcohol Use Standard Drinks/Week Comments No 0 (1 standard drink = 0.6 oz pur e alcohol) PHQ-2 Answer Date Recorded PHQ-2 Score 0 08/26/2022 Sex and Gender Information Value Date Recorded Sex Assigned at Not on file Legal Sex Male 4:18 AM AUTO SERVICE ADVISOR Gender Identity Not on file Sexual Orientation [...] file Medication is reported/historical Ninfa Herrera RN [facility] documented in this encounter Plan of Treatment Not on file documented as of this encounter Visit Diagnoses Not on filedocumented in this encounter Care Teams Industrial Pipefitter Journeyman Relationship Specialty Start Date End Date Hebert Herron MD PCP - General 12/27/17 Hebert Herron MD [address] [place], [place] [address] Assigned PCP 09/04/22 Anny Pratt [facility] [address] [id number] Assigned Behavioral Health Provider 02/14/24 documented as of this encounter
--- OUTSIDE RECORDS SUMMARY | 2024-12-12 08:23 | XMS_ITS | Encounter Summary ---
Author Organization [place] Address [address] [place] [address] Care Team Providers Care Gas Turbine Assembler Name Role Phone Hebert Herron MD Primary Care Provider + Hebert Herron MD Unavailable [phone] Anny Pratt [facility] Unavailable [phone] Reason for Visit * Reason Onset Date Comments MyChart Communication 11/28/2023 Encounter Details Date Type Department Care Team (Late st Contact Info) Description 11/28/2023 MyC Medical Advice [address] [place] [address] Hebert Herron MD [address] [place] [address] MyChart Communication Social History Tobacco [...] on file Legal Sex Male 4:18 AM ROCKET TEST FIRE 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 Lisha Jacques MA ET TEST FIRE WORKER documented in this encounter Plan of Treatment Not on file documented as of this encounter Visit Diagnoses Not on filedocumented in this encounter Care Teams Gas Turbine Assembler Relationship Specialty Start Date End Date Hebert Herron MD PCP - General 12/27/17 Hebert Herron MD [address] [place] [address] Assigned PCP 09/04/22 Anny Pratt [facility] [address] [address] Assigned Behavioral Health Provider 02/14/24 documented as of this encounter
--- OUTSIDE RECORDS SUMMARY | 2024-12-12 08:23 | XMS_ITS | Encounter Summary ---
Author Organization [place] Address [address] [place] [address] Care Team Providers Care Edging Machine Catcher Name Role Phone Hebert Herron MD Primary Care Provider + Hebert Herron MD Unavailable [phone] Anny Pratt [facility] Unavailable [phone] Reason for Visit * Reason Comments Medication Refill Encounter Details Date Type Department Care Team (Late st Contact Info) Description 10/31/2024 Refill [facility] [address] [facility] [address] [place] [address] Hebert Herron MD [address] [place] [address] Medication Refill Social History Tobacco [...] on file 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 Sex Male 4:18 AM AR MANAGER Gender Identity Not on file Sexual Orientation Not on file documented as of this encounter Plan of Treatment Not on file documented as of this encounter Visit Diagnoses Diagnosis Type 2 diabetes mellitus without complication, without long-term current use of insulin (H) documented in this encounter Additional Health Concerns Assessment Noted Time PHQ-9 Depression Total Score: 8 12/14/19 24 11:46 AM AR MANAGER documented as of this encounter Care Teams Edging Machine Catcher Relationship Specialty Start Date End Date Hebert Herron MD PCP - General 12/27/17 Hebert Herron MD [address] [place], [place] [id number] Assigned PCP 09/04/22 Anny Pratt [facility] [address] [address] Assigned Behavioral Health Provider 02/14/24 documented as of this encounter
--- OUTSIDE RECORDS SUMMARY | 2024-12-12 08:23 | XMS_ITS | Encounter Summary ---
Author Organization [facility] Address [address] [place] [address] Care Team Providers Care Engineering Program Analyst Name Role Phone Hebert Herron MD Primary Care Provider + Hebert Herron MD Unavailable nAny Pratt [facility] Unavailable Encounter Details Date Type Department Care Team (Late st Contact Info) Description 12/20/2023 MyC Medical Advice [facility] Mental Health & Addiction [facility] [address] [place] [phone] Anny Pratt LPCC [facility] [address] [place] [address] Social History Tobacco Use Types [...] on file 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 Gender Identity Not on file Sexual Orientation Not on file documented as of this encounter Plan of Treatment Not on file documented as of this encounter Visit Diagnoses Not on filedocumented in this encounter Additional Health Concerns Assessment Noted Time PHQ-9 Depression Total Score: 8 12/14/19 24 11:46 AM GROUP THERAPY COUNSELOR documented as of this encounter Care Teams Engineering Program Analyst Relationship Specialty Start Date End Date Hebert Herron MD PCP - General 12/27/17 Hebert Herron MD [address] [place], [place] [address]65[address] Assigned PCP 09/04/22 Anny Pratt LPCC [address] [id number] Assigned Behavioral Health Provider 02/14/24 documented as of this encounter
--- OUTSIDE RECORDS SUMMARY | 2024-12-12 08:23 | XMS_ITS | Encounter Summary ---
Author Organization [place] Address [address] [place] [address] Care Team Providers Care Crystallizer Operator Name Role Phone Hebert Herron MD Primary Care Provider + Hebert Herron MD Unavailable [phone] Anny Pratt 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 Gender Identity Not on file Sexual Orientation Not on file documented as of this encounter Plan of Treatment Not on file documented as of this encounter Visit Diagnoses Not on filedocumented in this encounter Additional Health Concerns Assessment Noted Time PHQ-9 Depression Total Score: 8 12/14/19 24 11:46 AM INSECTICIDE SUPERVISOR documented as of this encounter Care Teams Crystallizer Operator Relationship Specialty Start Date End Date Hebert Herron MD PCP - General 12/27/17 Hebert Herron MD [address] [place] [address] Assigned PCP 09/04/22 Anny Pratt LPCC [address] [id number] Assigned Behavioral Health Provider 02/14/24 documented as of this encounter
--- OUTSIDE RECORDS SUMMARY | 2024-12-12 08:23 | XMS_ITS | Clinical Summary ---
Author Organization [place] Address [address] [place] [address] Care Team Providers Care Cardiac/Vascular Sonographer Name Role Phone Hebert Herron MD Primary Care Provider + Hebert Herron MD Unavailable [phone] Anny Pratt [facility] Unavailable [phone] Allergies Active Allergy Reactions Criticality Noted Date [...] Type Department Care Team Description 10/31/2024 Refill [facility] [address] [place] [phone] Hebert Herron MD Medication Refill 10/13/2024 Refill [facility] [address] [place] [phone] Hebert Herron MD Medication Refill 09/17/2024 Refill [facility] [address] [place] [phone] Suzan Onofre APRN METAL BUILDING ASSEMBLER Medication Refill from Last 3 Months Immunizations [...] on file 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 Gender Identity Not on file Sexual [...] this topic Medical Devices Implanted Type Area Pie Bakery Laborer Device Identifier Shelf Expiration Date Model / Serial / Lot Graft Bone Foam Pack Vitoss 2.5ml Bio Active Implanted:Qt y: 1 on 12/27/2017 by Yimi Gutierrez MD at [facility] Bone/Tissue /Biologic N/A: Spine Cervical ORTHOVITA 11/20/[id number] / / [id number] Imp Spacer Strk Avs As [id number] [id number] Implanted:Qt y: 2 on 12/27/2017 by Yimi Gutierrez MD at [facility] Metallic Hardware/An chor N/A: Spine Cervical [employer] [id number] / / [id number] Imp Scr Strk Aviator Fixed Self Drill 4x14mm Purple [id number] Implanted:Qt y: 6 on 12/27/2017 by Yimi Gutierrez MD at [facility] Metallic Hardware/An chor N/A: Spine Cervical [employer] [id number] / / [id number] Imp Plate Strk Aviator 2 Level Size 32 [id number] Implanted:Qt y: 1 on 12/27/2017 by Yimi Gutierrez MD at [facility] Metallic Hardware/An chor N/A: Spine Cervical [employer]MAL [employer] [id number] / / [id number] Procedures Procedure Name Priority Date/Time Associated Diagnosis Comments COMPREHENSIVE METABOLIC PANEL Routine 11/30/2023 3:25 PM 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 MANAGER Cognitive and behavioral changes HEMOGLOBIN A1C Routine 11/30/2023 3:25 PM 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 MANAGER Type 2 diabetes mellitus without complication, without [...] RANDOM URINE QUANTITATIVE Routine 10/12/2012 2:47 PM 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 MANAGER Elevated serum creatinine HIM COLONOSCOPY SCAN Routine 11/07/2010 from Last 3 Months or Most Recently Relevant to Health Maintenance Results * (ABNORMAL) Hemoglobin A1c (11/30/2023 3:25 PM 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 MANAGER) Hemoglobin A1C 7.4(H) 0.0 - 5.6 % 11/30/2023 3:36 PM 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 MANAGER [facility] Comment: Normal <5.7% Prediabetes 5.7-6.4% Diabetes 6.5% or higher Note: Adopted from ADA consensus guidelines. Blood BLOOD SPECIMEN / Unknown Venipuncture / Unknown 11/30/2023 3:25 PM 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 MANAGER 11/30/2023 3:25 PM 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 MANAGER us Hebert Herron MD LAB - BLOOD ORDERABLES F inal Result [facility] [address] [facility], [address] [place] [address], [facility] [phone] * (ABNORMAL) Comprehensive metabolic panel (BMP + Alb, Alk Phos, ALT, AST, Total. Bili, TP) (11/30/2023 3:25 PM 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 MANAGER) Pathologist [facility] Sodium 139 135 - 145 mmol/L 12/01/2023 6:04 PM 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 MANAGER [facility] Comment:Reference intervals for this test were updated on 07/19/2023 to more accurately reflect our healthy population. There may be differences in the flagging of prior results with similar values performed with this method. Interpretation of those prior results can be made in the context of the updated reference intervals. Potassium 3.8 3.4 - 5.3 mmol/L 12/01/2023 6:04 PM 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 MANAGER [facility] Carbon Dioxide (CO2) 23 22 - 29 mmol/L 12/01/2023 6:04 PM 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 MANAGER [facility] Anion Gap 12 7 - 15 mmol/L 12/01/2023 6:04 PM 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 MANAGER [facility] Urea Nitrogen 18.0 8.0 - 23.0 mg/dL 12/01/2023 6:04 PM 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 MANAGER [facility] Creatinine 1.14 0.67 - 1.17 mg/dL 12/01/2023 6:04 PM 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 MANAGER [facility] GFR Estimate 71 >60 mL/min/1. 73m2 12/01/2023 6:04 PM 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 MANAGER [facility] Calcium 9.2 8.8 - 10.2 mg/dL 12/01/2023 6:04 PM 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 MANAGER [facility] Chloride 104 98 - 107 mmol/L 12/01/2023 6:04 PM 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 MANAGER [facility] Glucose 154(H) 70 - 99 mg/dL 12/01/2023 6:04 PM 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 MANAGER [facility] Alkaline Phosphatase 58 40 - 150 U/L 12/01/2023 6:04 PM 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 MANAGER [facility] Comment:Reference intervals for this test were updated on 09/06/2023 to more accurately reflect our healthy population. There may be differences in the flagging of prior results with similar values performed with this method. Interpretation of those prior results can be made in the context of the updated reference intervals. AST 18 0 - 45 U/L 12/01/2023 6:04 PM 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 MANAGER [facility] Comment:Reference intervals for this test were updated on 04/04/2023 to more accurately reflect our healthy population. There may be differences in the flagging of prior results with similar values performed with this method. Interpretation of those prior results can be made in the context of the updated reference intervals. ALT 14 0 - 70 U/L 12/01/2023 6:04 PM 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 MANAGER [facility] Comment:Reference intervals for this test were updated on 04/04/2023 to more accurately reflect our healthy population. There may be differences in the flagging of prior results with similar values performed with this method. Interpretation of those prior results can be made in the context of the updated reference intervals. Protein Total 7.1 6.4 - 8.3 g/dL 12/01/2023 6:04 PM 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 MANAGER [facility] Albumin 4.2 3.5 - 5.2 g/dL 12/01/2023 6:04 PM 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 MANAGER [facility] Bilirubin Total 0.5 <=1.2 mg/dL 12/01/2023 6:04 PM 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 MANAGER [facility] Blood BLOOD SPECIMEN / Unknown Venipuncture / Unknown 11/30/2023 3:25 PM 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 MANAGER 11/30/2023 3:25 PM 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 MANAGER us Hebert Herron MD LAB - BLOOD ORDERABLES F inal Result [facility] [address] [facility], [address] [address], [facility] [phone] * (ABNORMAL) Lipid panel reflex to direct [...] BLOOD ORDERABLES F inal Result [facility] [address] [facility], [address] [place] [address], [facility] [phone] * Hepatitis C Screen Reflex to HCV [...] inal Result SPECIALTY CORE/PROT/ENDO Specialty Core/Prot/Endo [address] [facility], [address] [phone] * Microalbumin quantitative random urine (10/12/2012 2:47 PM 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 MANAGER) Creatinine Urine 201 mg/dL [facility] Albumin Urine mg/L 8 mg/L [facility] Albumin Urine mg/g Cr 3.98 0 - 17 mg/g Cr [facility] Urine specimen (specimen) 10/12/2012 2:47 PM 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 MANAGER 10/12/2012 2:50 PM 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 MANAGER Venu Schmid MD LAB - URINE ORDERABLES Final Re sult Performing Organization Address [facility]/ZIP Co de Phone Number [facility] [address] [place] [address] * - HIM Screen Colonoscopy Scan (11/07/2010) [...] [facility] Care Teams Cardiac/Vascular Sonographer Relationship Specialty Start Date End Date Hebert Herron MD PCP - General 12/27/17 Hebert Herron MD [address] [place] [address] Assigned PCP 09/04/22 Anny Pratt LPCC [address] [address] Assigned Behavioral Health Provider 02/14/24
--- OUTSIDE RECORDS SUMMARY | 2024-12-12 08:23 | XMS_ITS | Encounter Summary ---
Author Organization [place] Address [address] [place] [address] Care Team Providers Care Equipment Superintendent Name Role Phone Hebert Herron MD Primary Care Provider + Hebert Herron MD Unavailable [phone] Anny Pratt [facility] Unavailable [phone] Encounter Details Date Type Department Care Team (Late st Contact Info) Description 12/07/2023 MyC Medical Advice [address] [place] [address] Hebert Herron MD [address] [place] [address] Social History Tobacco Use Types [...] on file Legal Sex Male 4:18 AM JACK OF ALL TRADES Gender Identity Not on file Sexual Orientation Not on file documented as of this encounter Plan of Treatment Not on file documented as of this encounter Visit Diagnoses Not on filedocumented in this encounter Additional Health Concerns Assessment Noted Time PHQ-9 Depression Total Score: 14 024 8:53 AM JACK OF ALL TRADES documented as of this encounter Care Teams Equipment Superintendent Relationship Specialty Start Date End Date Hebert Herron MD PCP - General 12/27/17 Hebert Herron MD [address] [place], [place] [id number] Assigned PCP 09/04/22 Anny Pratt [facility] [address] [address] Assigned Behavioral Health Provider 02/14/24 documented as of this encounter
--- OUTSIDE RECORDS SUMMARY | 2024-12-12 08:23 | XMS_ITS | Encounter Summary ---
Author Organization [facility] Address [address] [place] [address] Care Team Providers Care Rubber Press Operator Name Role Phone Hebert Herron MD Primary Care Provider + Hebert Herron MD Unavailable [phone] Anny Pratt [facility] Unavailable Encounter Details Date Type Department Care Team (Late st Contact Info) Description 12/14/2023 MyC Medical Advice [facility] Mental Health & Addiction [facility] [address] [place] [phone] Anny Pratt LPCC [facility] [address] [place] [address] Social History Tobacco Use Types [...] on file Legal Sex Male 4:18 AM 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 Gender Identity Not on file Sexual Orientation Not on file documented as of this encounter Plan of Treatment Not on file documented as of this encounter Visit Diagnoses Not on filedocumented in this encounter Additional Health Concerns Assessment Noted Time PHQ-9 Depression Total Score: 8 12/14/19 24 11:46 AM OUTSOLE BEVELER documented as of this encounter Care Teams Rubber Press Operator Relationship Specialty Start Date End Date Hebert Herron MD PCP - General 12/27/17 Hebert Herron MD [address] [place], [place] 3935[address] Assigned PCP 09/04/22 Anny Pratt LPCC [address] [id number] Assigned Behavioral Health Provider 02/14/24 documented as of this encounter
--- OUTSIDE RECORDS SUMMARY | 2024-12-12 08:23 | XMS_ITS | Encounter Summary ---
Author Organization [place] Address [address] [place] [address] Care Team Providers Care Tubular Splitting Machine Tender Name Role Phone Hebert Herron MD Primary Care Provider + Hebert Herron MD Unavailable [phone] Anny Pratt [facility] Unavailable [phone] Reason for Visit * Reason Onset Date Comments MyChart Communication 11/30/2023 Encounter Details Date Type Department Care Team (Late st Contact Info) Description 11/30/2023 MyC Medical Advice [address] [place] [address] Hebert Herron MD [address] [place] [address] MyChart Communication Social History Tobacco [...] on file 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 Sharan Wilder, industrial nurse [facility] 11:59 AM 11/30/2023 NCED MANUFACTURING TECHNICIAN documented in this encounter Plan of Treatment Not on file documented as of this encounter Visit Diagnoses Not on filedocumented in this encounter Care Teams Tubular Splitting Machine Tender Relationship Specialty Start Date End Date Hebert Herron MD PCP - General 12/27/17 Hebert Herron MD [address] [place], [place] [address]34[address] Assigned PCP 09/04/22 Anny Pratt LPCC [address] [phone] Assigned Behavioral Health Provider 02/14/24 documented as of this encounter
--- OUTSIDE RECORDS SUMMARY | 2024-12-12 08:23 | XMS_ITS | Encounter Summary ---
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
[2024-12-12] MEDS: METOPROLOL TARTRATE 1 MG/ML inj 5 MG IVP (08:26)
[2024-12-12 08:30] LABS: Chloride* 104 mmol/L (96-114); Potassium* 3.4 mmol/L (3.6-5.1); Sodium* 138 mmol/L (135-149)
[2024-12-12 08:33] LABS: Anion Gap 9 mEq/L (7-15); Blood Urea Nitrogen* 18 mg/dL (7-30); Carbon Dioxide* 25 mmol/L (20-32); Est. Creatinine Clearance* 79.76; Estimated Glomerular Filt Rate 83 ml/min; Glucose* 223 mg/dL (60-115)
[2024-12-12 08:34] LABS: Calcium* 8.5 mg/dL (8.4-10.6); Magnesium* 1.9 mg/dL (1.5-2.6)
[2024-12-12 08:48] LABS: NT Pro B Type NatriureticPept* 170 pg/mL
[2024-12-12] MEDS: POTASSIUM CHLORIDE 10 MEQ/100 ML PIGGYBACK 100 MEQ IVPB (09:21)
[2024-12-12] MEDS: APIXABAN 5 MG TABLET PO (09:23)
--- NOTE | 2024-12-12 10:17 | P.ANES_ITS ---
Anesthesia Charges Start Date/Time Anesthesia Start Date: 12/12/24 Anesthesia Start Time: 10:05 Stop Date/Time Anesthesia Stop Date: 12/12/24 Anesthesia Stop Time: 10:15 Summary Emergency: TARIFF COUNSEL Coding CPT Codes CPT Codes: ANESTH CORRECT HEART RHYTHM - 95060 ([id number]) P3 - PATIENT W/SEVERE SYS DISEASE, QK - TOPSTITCHER LOCKSTITCH 2-4 CNCRNT ANES PROC, QX - TARIFF COUNSEL SVC W/ MD MED DIRECTION Additional Codes: Summary - Emergency: TARIFF COUNSEL ([id number])
--- NOTE | 2024-12-12 10:17 | W.ANESCHARGE ---
Anesthesia Charges Start Date/Time Anesthesia Start Date: 12/12/24 Anesthesia Start Time: 10:05 Stop Date/Time Anesthesia Stop Date: 12/12/24 Anesthesia Stop Time: 10:15 Summary Emergency: FOOD PRODUCTION SUPERVISOR Coding CPT Codes CPT Codes: ANESTH CORRECT HEART RHYTHM - 65585 ([id number]) P3 - PATIENT W/SEVERE SYS DISEASE, QK - COLLECTION ANALYST 2-4 CNCRNT ANES PROC, QX - FOOD PRODUCTION SUPERVISOR SVC W/ MD MED DIRECTION Additional Codes: Summary - Emergency: FOOD PRODUCTION SUPERVISOR ([id number])
--- NOTE | 2024-12-12 10:18 | P.ANES_ITS ---
Anesthesia Charges Start Date/Time Anesthesia Start Date: 12/12/24 Anesthesia Start Time: 10:05 Stop Date/Time Anesthesia Stop Date: 12/12/24 Anesthesia Stop Time: 10:15 Summary Emergency: SHARON Coding CPT Codes CPT Codes: ANESTH CORRECT HEART RHYTHM - 91176 ([id number]) P3 - PATIENT W/SEVERE SYS DISEASE, QK - UTILIZATION MANAGEMENT RN 2-4 CNCRNT ANES PROC, QX - TELEGRAPH INSPECTOR SVC W/ MD MED DIRECTION Additional Codes: Summary - Emergency: SHARON ([id number])
--- NOTE | 2024-12-12 10:18 | W.ANESCHARGE ---
Anesthesia Charges Start Date/Time Anesthesia Start Date: 12/12/24 Anesthesia Start Time: 10:05 Stop Date/Time Anesthesia Stop Date: 12/12/24 Anesthesia Stop Time: 10:15 Summary Emergency: SHARON Coding CPT Codes CPT Codes: ANESTH CORRECT HEART RHYTHM - 74102 ([id number]) P3 - PATIENT W/SEVERE SYS DISEASE, QK - GERMINATION TESTING MANAGER 2-4 CNCRNT ANES PROC, QX - WHITING CAN WORKER SVC W/ MD MED DIRECTION Additional Codes: Summary - Emergency: SHARON ([id number])
== END 2024-12-12 11:10 | disposition home or self-care (01) ==
PROVIDERS: Family Medicine; Emergency Provider Family Medicine
DX: I48.0 Paroxysmal atrial fibrillation (principal)
CPT/HCPCS: 92960; 00410; 36415; 71045; 80048; 83735; 83880; 84484; 85025; 93005; 96365; 96366; 99140; 99285; A9270; J2704; J3475; J3480; J7050